=== PATIENT | female | born 1960 | race Caucasian/White ===

== ENCOUNTER → 2017-09-20 | Outpatient (CLI) | payer OTHER ==
[~2017-09-20] MED LIST: ACET325 PO; ALBU90OI INH; ALBU90OI61 INH; ASPI81CH PO; Aspir 8181 MG PO; BUSP15 PO; CYCL10 PO; DILT120 PO; DULO60 PO; Flovent 220 Ora12 GM INH; HYDACE5 PO; IBUP800 PO; METO25ER PO; NICO21TP TD; NICO7 TD; PRED20 PO; PREG75 PO; Percocet 5-3251 EACH PO; STIOLTO RESPIMAT4 GM INH; TIOT18
[2017-09-20 17:32] LABS: BASOPHILS ABSOLUTE AUTO 0.08 K/mm3 (0.00-0.23); BASOPHILS PERCENT AUTO 1 % (0-2); EOSINOPHILS PERCENT AUTO 2 % (0-6); Hematocrit 45.7 % (33.0-51.0); Hemoglobin 15.1 g/dL (11.5-16.0); IMMATURE GRAN ABSOLUTE AUTO 0.04 K/mm3 (0.00-0.10); IMMATURE GRAN PERCENT AUTO 0 % (0-1); LYMPHOCYTES ABSOLUTE AUTO 4.21 K/mm3 (0.84-5.20); LYMPHOCYTES PERCENT AUTO 33 % (21-46); MONOCYTES ABSOLUTE AUTO 0.61 K/mm3 (0.16-1.47); MONOCYTES PERCENT AUTO 5 % (4-13); Mean Corpuscular HGB 29.3 pg (26.0-34.0); Mean Corpuscular Volume 89 fL (80-100); Mean Platelet Volume 9.8 fL (9.1-12.4); NEUTROPHILS ABSOLUTE AUTO 7.49 K/mm3 (1.96-9.15); NEUTROPHILS PERCENT AUTO 59 % (41-73); Platelet Count 391 K/mm3 (150-400); RDW Coefficient Variation 13.7 % (11.7-14.2); RDW Standard Deviation 44.9 fL (35.1-46.3); Red Blood Cell Count 5.15 M/mm3 (3.80-5.20); White Blood Cell Count 12.73 K/mm3 (4.00-11.30)
[2017-09-20 17:45] LABS: Alanine Aminotransfer (ALT/SGP 39 U/L (12-78); Albumin, Blood 4.1 g/dL (3.4-5.0); Alk Phos 116 U/L (50-136); Anion Gap 7 mmol/L (6-16); Aspartate Aminotrans (AST/SGOT 19 U/L (12-37); Bilirubin, Total 0.3 mg/dL (0.1-1.0); Blood Urea Nitrogen 12 mg/dL (8-24); Bun/Creatinine Ratio 15.4 (12.0-20.0); CO2, Blood 27 mmol/L (21-32); Calcium, Blood 9.7 mg/dL (8.5-10.1); Chloride, Blood 105 mmol/L (98-108); Cholesterol 202 mg/dL (50-200); Creatinine, Blood 0.78 mg/dL (0.40-1.00); Glomerular Filtration Rate >60 (60-); Glucose, Blood 100 mg/dL (70-99); HDL Cholesterol 51 mg/dL (>39); LDL/HDL RATIO 2.6; Low Density Lipoprotein Chol 132 mg/dL (0-110); Potassium, Blood 4.3 mmol/L (3.5-5.5); Sodium, Blood 139 mmol/L (136-145); Total Protein, Blood 8.1 g/dL (6.4-8.2); Triglycerides 97 mg/dL (30-160); Very Low Density Lipoprot Chol 19 mg/dL (6-32)
== END | disposition home or self-care (01) ==
LOC: LAB 17:21 → LAB SHORT 17:21
PROVIDERS: Student in an Organized Health Care Education/Training Program
DX: R03.0 Elevated blood-pressure reading, without diagnosis of hypertension (principal); R73.09 Other abnormal glucose
CPT/HCPCS: 80053; 80061; 83036; 84443; 85025

== ENCOUNTER 2020-06-17 10:50 | Day surgery (SDC) | payer MEDICARE ==
[~2020-06-17] VITALS: Ht 165.1 cm; Wt 87.8 kg
[2020-06-17] MEDS ORDERED: B-1100 M1 PO (11:34)
[2020-06-17] MEDS ORDERED: FOLI1 PO (11:34)
[2020-06-17] MEDS ORDERED: FAMO20 PO (11:35)
[2020-06-17] MEDS ORDERED: SERT25 PO (11:37)
--- NOTE | 2020-06-17 12:00 | NUR ---
06/17/[address] ORDERED AN EKG THERE IS NO CURRENT EKG ON THE CHART, EKG COMPLETE AND RESULTS PROVIDED TO DR. JANG AND TRANSMITTED TO THE EMR
== END 2020-06-17 13:57 | disposition home or self-care (01) ==
LOC: ORSCSDS 10:50
PROVIDERS: Obstetrics & Gynecology
PROC: 0UT04ZZ Resection of Right Ovary, Percutaneous Endoscopic Approach (ICD-10-PCS; principal; 2020-06-17 12:00)
PROC: 0UT54ZZ Resection of Right Fallopian Tube, Percutaneous Endoscopic Approach (ICD-10-PCS; principal; 2020-06-17 12:00)
DX: D27.0 Benign neoplasm of right ovary (principal); N83.8 Other noninflammatory disorders of ovary, fallopian tube and broad ligament; R19.09 Other intra-abdominal and pelvic swelling, mass and lump; I10 Essential (primary) hypertension; J44.9 Chronic obstructive pulmonary disease, unspecified; F17.210 Nicotine dependence, cigarettes, uncomplicated; K21.9 Gastro-esophageal reflux disease without esophagitis; Z79.899 Other long term (current) drug therapy; Z79.82 Long term (current) use of aspirin
CPT/HCPCS: 88305; 93005; 93010; J0171; J1100; J1885; J2250; J2310; J2405; J2704; J2710; J3010; J7120

== ENCOUNTER → 2021-02-17 | Outpatient (CLI) | payer MEDICARE ==
[~2021-02-17] MED LIST changes: +B-1100 M1 PO; +FAMO20 PO; +FOLI1 PO; +SERT25 PO
[2021-02-17 13:29] LABS: BASOPHILS ABSOLUTE AUTO 0.07 K/mm3 (0.00-0.23); BASOPHILS PERCENT AUTO 1 % (0-2); EOSINOPHILS ABSOLUTE AUTO 0.32 K/mm3 (0.00-0.68); EOSINOPHILS PERCENT AUTO 3 % (0-6); Hematocrit 44.8 % (33.0-51.0); Hemoglobin 14.5 g/dL (11.5-16.0); IMMATURE GRAN ABSOLUTE AUTO 0.05 K/mm3 (0.00-0.10); IMMATURE GRAN PERCENT AUTO 0 % (0-1); LYMPHOCYTES ABSOLUTE AUTO 2.93 K/mm3 (0.84-5.20); LYMPHOCYTES PERCENT AUTO 23 % (21-46); MONOCYTES PERCENT AUTO 4 % (4-13); Mean Corpuscular HGB 28.9 pg (26.0-34.0); Mean Corpuscular HGB Conc 32.4 g/dL (31.5-36.5); Mean Corpuscular Volume 89 fL (80-100); Mean Platelet Volume 9.8 fL (9.1-12.4); NEUTROPHILS ABSOLUTE AUTO 8.95 K/mm3 (1.96-9.15); NEUTROPHILS PERCENT AUTO 70 % (41-73); Platelet Count 433 K/mm3 (150-400); RDW Coefficient Variation 13.1 % (11.7-14.2); RDW Standard Deviation 43.2 fL (35.1-46.3); Red Blood Cell Count 5.01 M/mm3 (3.80-5.20); White Blood Cell Count 12.82 K/mm3 (4.00-11.30)
[2021-02-17 13:45] LABS: LDL/HDL RATIO 3.1; Very Low Density Lipoprot Chol 24 mg/dL (6-32)
[2021-02-17 13:46] LABS: Alanine Aminotransfer (ALT/SGP 27 U/L (12-78); Albumin, Blood 3.6 g/dL (3.4-5.0); Albumin/Globulin Ratio 0.9 (0.8-1.8); Alk Phos 118 U/L (50-136); Anion Gap 3 mmol/L (6-16); Aspartate Aminotrans (AST/SGOT 17 U/L (12-37); Bilirubin, Total 0.5 mg/dL (0.1-1.0); Blood Urea Nitrogen 11 mg/dL (8-24); Bun/Creatinine Ratio 16.5 (12.0-20.0); CHOL/HDL RATIO 4.6; CO2, Blood 29 mmol/L (21-32); Calcium, Blood 9.5 mg/dL (8.5-10.1); Chloride, Blood 105 mmol/L (98-108); Cholesterol 243 mg/dL (50-200); Creatinine, Blood 0.67 mg/dL (0.40-1.00); Glomerular Filtration Rate >60 (60-); Glucose, Blood 99 mg/dL (70-99); HDL Cholesterol 53 mg/dL (>39); Low Density Lipoprotein Chol 166 mg/dL (0-110); Sodium, Blood 137 mmol/L (136-145); Total Protein, Blood 7.6 g/dL (6.4-8.2); Triglycerides 121 mg/dL (30-160)
== END | disposition home or self-care (01) ==
LOC: LAB 11:02 → LAB SHORT 11:02
PROVIDERS: Nurse Practitioner Family
DX: D72.829 Elevated white blood cell count, unspecified (principal); E78.5 Hyperlipidemia, unspecified
CPT/HCPCS: 80053; 80061; 85025

== ENCOUNTER 2021-04-17 10:55 | Inpatient (IN) | payer MEDICARE ==
[~2021-04-17] VITALS: Ht 165.1 cm; Wt 94.8 kg
[2021-04-17 11:14] LABS: Hematocrit 45.5 % (33.0-51.0); Hemoglobin 14.8 g/dL (11.5-16.0); Mean Corpuscular HGB 29.1 pg (26.0-34.0); Mean Corpuscular HGB Conc 32.5 g/dL (31.5-36.5); Mean Corpuscular Volume 89 fL (80-100); Mean Platelet Volume 10.1 fL (9.1-12.4); Platelet Count 361 K/mm3 (150-400); RDW Coefficient Variation 13.2 % (11.7-14.2); RDW Standard Deviation 43.3 fL (35.1-46.3); Red Blood Cell Count 5.09 M/mm3 (3.80-5.20); White Blood Cell Count 22.31 K/mm3 (4.00-11.30)
[2021-04-17] MEDS ORDERED: IBUP600 PO (11:15)
[2021-04-17 11:46] LABS: BAND PERCENT MAN 3 % (0-8); BASOPHILS PERCENT MAN 0 % (0-2); EOSINOPHILS PERCENT MAN 0 % (0-6); LYMPHOCYTES ABSOLUTE MAN 1.11 K/mm3 (0.84-5.20); LYMPHOCYTES PERCENT MAN 5 % (21-46); MONOCYTES ABSOLUTE MAN 0.89 K/mm3 (0.16-1.47); MONOCYTES PERCENT MAN 4 % (4-13); SEG NEUTROPHILS PERCENT MAN 88 % (41-73); TOTAL CELLS COUNTED 100
[2021-04-17 11:53] LABS: Alanine Aminotransfer (ALT/SGP 26 U/L (12-78); Albumin, Blood 3.7 g/dL (3.4-5.0); Albumin/Globulin Ratio 0.9 (0.8-1.8); Alk Phos 103 U/L (50-136); Anion Gap 7 mmol/L (6-16); Aspartate Aminotrans (AST/SGOT 11 U/L (12-37); Bilirubin, Total 0.7 mg/dL (0.1-1.0); Blood Urea Nitrogen 15 mg/dL (8-24); Bun/Creatinine Ratio 23.3 (12.0-20.0); CO2, Blood 26 mmol/L (21-32); Calcium, Blood 9.8 mg/dL (8.5-10.1); Chloride, Blood 105 mmol/L (98-108); Creatinine, Blood 0.64 mg/dL (0.40-1.00); Globulin, Blood 3.9 g/dL (2.2-4.0); Glomerular Filtration Rate >60 (60-); Glucose, Blood 120 mg/dL (70-99); Potassium, Blood 4.1 mmol/L (3.5-5.5); Sodium, Blood 138 mmol/L (136-145); Total Protein, Blood 7.6 g/dL (6.4-8.2)
[2021-04-17 13:24] LABS: Source, Urine Clean Catch
[2021-04-17 13:28] LABS: Bilirubin, Urine Neg (Neg); Blood, Urine 1+ (Neg); Glucose Qualitative, Urine Neg (Neg); Ketones, Urine Neg (Neg); Leukocyte Esterase, Urine 2+ (Neg); Nitrite, Urine Neg (Neg); Protein, Urine 1+ (Neg); Urobilinogen, Urine NORM (Normal)
[2021-04-17 13:33] LABS: Appearance, Urine Clear (Clear); Color, Urine Yellow (P-Yellow)
[2021-04-17 13:36] LABS: Bacteria Rare /hpf; Red Blood Cells, Urine 0-2 /hpf (0-2); Squamous Epithelial Cells Few /hpf (Few)
[2021-04-17 14:22] LABS: Influenza A, PCR NEGATIVE (NEGATIVE); Influenza B, PCR NEGATIVE (NEGATIVE); Resp Syncytial Virus, PCR NEGATIVE (NEGATIVE); SARS-Cov-2 (COVID-19) PCR, MMC NEGATIVE (NEGATIVE)
--- NOTE | 2021-04-17 15:07 | NUR ---
History, Chart, Medications and Allergies reviewed before start of procedure. EXP WHEEZES T/O. NON PRODUCTIVE COUGH NOTED AT THIS TIME. Patient confirms NPO status and agrees with scheduled surgery. Pre-Op teaching done. Pt verbalizes understanding. PT C/O ABD PAIN MIDDLE TO LEFT LQ. C/O PAIN 7/10 AT THIS TIME. REPORTS SOME NAUSEA.
--- NOTE | 2021-04-17 16:29 | NUR ---
04/17/21 1629 Eliza Brasher NO PREOP ANTIBIOTICS ORDERED DUE TO PATIENT BEING ON SCHEDULE ANTIBIOTICS PRIOR TO SURGERY.
[2021-04-17 20:45] LABS: PCO2 Arterial 52.4 mmHg (35-45); PO2 Arterial 89.5 mmHg (80-100)
--- NOTE | 2021-04-17 22:21 | NUR ---
ASSUMED CARE @1855 PATIENT TO ROOM FROM SURGERY @1855 ON VENT. PATIENT INITIALLY NOT RESPONDING D/T SEDATION, STARTED TO WAKE UP AND FOLLOW COMMANDS, PUPILS REACTIVE, NODS YES/NO TO QUESTIONS. ON SEDATION OF PROPOFOL INF 25 MCG/KG/MIN. 02 SATS 97%, VENT AC VC 20/430/5/55%, RT ADJUSTED TO THESE SETTINGS DUE TO ABG RESULTS. LUNG SOUNDS WITH EXPIRATORY WHEEZES. HR SR-ST 90s-110. BP STABLE. NG TO LOW INTERMITTEN SUCTION, DRAINING METHYLENE BLUE THAT WAS USED DURING SURGERY. NEFTALI DRAINS DRAINING SANGUINUS TO SARASANGUINOUS FLUID, ABDOMINAL DRESSING INTACT WITH A SMALL AMOUNT OF BLOOD WEEPING THROUGH. CASON DRAINING YELLOW URIN. MEDICATED FOR PAIN PER EMAR. REPOSITIONING Q2 HOURS, ORAL CARE DONE. PATIENTS DAUGHTER TO ROOM WHEN PATIENT ARRIVED. SEE SHIFT ASSESSMENT FOR MORE DETAIL.
[2021-04-18 03:37] LABS: Hematocrit 40.8 % (33.0-51.0); Hemoglobin 13.2 g/dL (11.5-16.0); Mean Corpuscular HGB 28.8 pg (26.0-34.0); Mean Corpuscular HGB Conc 32.4 g/dL (31.5-36.5); Mean Corpuscular Volume 89 fL (80-100); Platelet Count 318 K/mm3 (150-400); RDW Coefficient Variation 13.6 % (11.7-14.2); RDW Standard Deviation 44.7 fL (35.1-46.3); Red Blood Cell Count 4.58 M/mm3 (3.80-5.20); White Blood Cell Count 23.71 K/mm3 (4.00-11.30)
[2021-04-18 03:58] LABS: Alanine Aminotransfer (ALT/SGP 31 U/L (12-78); Albumin, Blood 2.5 g/dL (3.4-5.0); Albumin/Globulin Ratio 0.7 (0.8-1.8); Alk Phos 69 U/L (50-136); Anion Gap 6 mmol/L (6-16); Aspartate Aminotrans (AST/SGOT 18 U/L (12-37); Bilirubin, Total 0.6 mg/dL (0.1-1.0); Blood Urea Nitrogen 10 mg/dL (8-24); Bun/Creatinine Ratio 13.4 (12.0-20.0); CO2, Blood 25 mmol/L (21-32); Calcium, Blood 8.7 mg/dL (8.5-10.1); Chloride, Blood 107 mmol/L (98-108); Creatinine, Blood 0.75 mg/dL (0.40-1.00); Globulin, Blood 3.6 g/dL (2.2-4.0); Glomerular Filtration Rate >60 (60-); Glucose, Blood 171 mg/dL (70-99); Magnesium, Blood 1.8 mg/dL (1.6-2.4); Sodium, Blood 138 mmol/L (136-145); Total Protein, Blood 6.1 g/dL (6.4-8.2)
--- NOTE | 2021-04-18 05:36 | NUR ---
SHIFT SUMMARY PATIENT OPENS EYES SPONTANEOUSLY, NODS YES/NO TO QUESTIONS AND FOLLOWS COMMANDS. ABLE TO MOVE ALL EXTREMETIES. SEDATED WITH PROPOFOL INF 35 MCG/KG/MIN. 02 SATS 95% ON VENT AC VC 20/430/5/50%. THIN WHITE SECRETIONS SUCTIONED, LUNG SOUNDS INSPIRATORY WHEEZE. HR SR-ST @90s-110. BP STABLE. NG TO LIS, SMALL AMOUNT OF BLUE OUTPUT FROM SURGERY. MEDICATED FOR PAIN Q2 HOURS, PER EMAR. REPOSITIONED Q2 HOURS. IN SOFT WRIST RESTRAINTS TO PROTECT LINES AND TUBES. LACTIC ACID OF 4.[address] KAISER, NO ORDERS AT THIS TIME.
[2021-04-18 05:45] LABS: BAND PERCENT MAN 19 % (0-8); BASOPHILS PERCENT MAN 0 % (0-2); EOSINOPHILS PERCENT MAN 0 % (0-6); LYMPHOCYTES ABSOLUTE MAN 0.94 K/mm3 (0.84-5.20); LYMPHOCYTES PERCENT MAN 4 % (21-46); METAMYELOCYTE ABSOLUTE MAN 0.23 K/mm3 (0.00-0.00); METAMYELOCYTE PERCENT MAN 1 % (0-0); MONOCYTES ABSOLUTE MAN 0.71 K/mm3 (0.16-1.47); MONOCYTES PERCENT MAN 3 % (4-13); NEUTROPHILS ABSOLUTE MAN 21.81 K/mm3 (1.96-9.15); SEG NEUTROPHILS PERCENT MAN 73 % (41-73); TOTAL CELLS COUNTED 100
--- NOTE | 2021-04-18 11:15 | NUR ---
PT WAS EXTUBATED PER DR. RAY ORDERS. PT IS AWAKE AND FOLLOWING COMMANDS. NO SIGN OF RESP DISTRESS. CALL LIGHT IN REACH AND PT ABLE TO USE IT APPRPOPRIATELY.
--- NOTE | 2021-04-18 17:06 | NUR ---
SUMMARY PT WAS EXTUBATED THIS AM. SHE IS A/O X4 AND USING CALL LIGHT APPROPRIATELY. PT DID NOT HAVE TO GO BACK TO OR TODAY. NG STILL IN PLACE TO LIS. FENTANYL FILM HISTORIAN STARTED TODAY. NEFTALI DRAINS TO R ABD DRAINING SANGUINOUS FLUID. MIDLINE DESEAN VAC INTACT WITH MINIMAL OOZING ON THE DRESSING. NO SIGN OF DISTRESS, NO REQUESTS.
--- NOTE | 2021-04-18 19:45 | NUR ---
ASSUMING PT CARE: PT RESTING IN SEMI-FOWLERS IN BED, WATCHING TV. APPROPRIATELY INTERACTIVE, FOLLOWING DIRECTIONS. FENTANYL @ 50mcg/hr. SPO2 96% ON 2L/MIN NC. HR SINUS TACH, low 100s. ABD DISTENDED, FIRM, TENDER. NEFTALI DRAIN x2 TO R ABD, SCANT SEROSANGUINOUS CONTENTS. DESEAN DRESSING TO ABD MIDLINE. SEE INITIAL SHIFT DOCUMENTATION FOR FULL ASSESSMENT.
--- NOTE | 2021-04-19 | NUR ---
PT RESTING SOUNDLY. AWAKES WHEN STAFF ENTERS ROOM, RESPONDS APPROPRIATELY. VS STABLE. DENIES ANY UNMET NEEDS.
[2021-04-19 03:27] LABS: BASOPHILS ABSOLUTE AUTO 0.04 K/mm3 (0.00-0.23); BASOPHILS PERCENT AUTO 0 % (0-2); EOSINOPHILS ABSOLUTE AUTO 0.09 K/mm3 (0.00-0.68); EOSINOPHILS PERCENT AUTO 1 % (0-6); Hematocrit 35.5 % (33.0-51.0); Hemoglobin 11.5 g/dL (11.5-16.0); IMMATURE GRAN ABSOLUTE AUTO 0.05 K/mm3 (0.00-0.10); IMMATURE GRAN PERCENT AUTO 0 % (0-1); LYMPHOCYTES ABSOLUTE AUTO 2.59 K/mm3 (0.84-5.20); LYMPHOCYTES PERCENT AUTO 15 % (21-46); MONOCYTES ABSOLUTE AUTO 0.51 K/mm3 (0.16-1.47); MONOCYTES PERCENT AUTO 3 % (4-13); Mean Corpuscular HGB Conc 32.4 g/dL (31.5-36.5); Mean Corpuscular Volume 89 fL (80-100); Mean Platelet Volume 9.9 fL (9.1-12.4); NEUTROPHILS ABSOLUTE AUTO 13.74 K/mm3 (1.96-9.15); NEUTROPHILS PERCENT AUTO 81 % (41-73); Platelet Count 294 K/mm3 (150-400); RDW Standard Deviation 46.1 fL (35.1-46.3); Red Blood Cell Count 3.97 M/mm3 (3.80-5.20); White Blood Cell Count 17.02 K/mm3 (4.00-11.30)
[2021-04-19 03:44] LABS: Alanine Aminotransfer (ALT/SGP 24 U/L (12-78); Albumin, Blood 2.4 g/dL (3.4-5.0); Albumin/Globulin Ratio 0.7 (0.8-1.8); Alk Phos 68 U/L (50-136); Anion Gap 4 mmol/L (6-16); Aspartate Aminotrans (AST/SGOT 19 U/L (12-37); Bilirubin, Direct 0.2 mg/dL (0.0-0.3); Bilirubin, Indirect 0.2 mg/dL (0.1-0.7); Bilirubin, Total 0.4 mg/dL (0.1-1.0); Blood Urea Nitrogen 11 mg/dL (8-24); Bun/Creatinine Ratio 17.9 (12.0-20.0); CO2, Blood 30 mmol/L (21-32); Chloride, Blood 106 mmol/L (98-108); Creatinine, Blood 0.62 mg/dL (0.40-1.00); Globulin, Blood 3.6 g/dL (2.2-4.0); Glomerular Filtration Rate >60 (60-); Glucose, Blood 100 mg/dL (70-99); Phosphorus, Blood 2.2 mg/dL (2.5-4.9); Potassium, Blood 3.7 mmol/L (3.5-5.5); Sodium, Blood 140 mmol/L (136-145)
--- NOTE | 2021-04-19 06:37 | NUR ---
SHIFT SUMMARY: PT CONTINUES TO REST SUPINE IN BED. PT ADAMANT T/O THE NIGHT TO NOT CHANGE POSITIONS D/T PAIN & BEING "COMFORTABLE". PT RECEIVED ONE PRN DOSE OF FENTANYL BUT PAIN WAS OTHERWISE CONTROLLED W/ BUNDLE CLERK. SURGICAL DRESSINGS INTACT, W/ SM AMNT OF DRIED BLOOD TO THE MIDLINE DRESSING UNCHANGED FROM INITIAL SHIFT ASSESSMENT. 40ml TOTAL SEROSANGUINOUS DRAINAGE FROM NEFTALI DRAINS. NO ACUTE NEG CHANGES OVERNIGHT. WILL CONTINUE TO MONITOR UNTIL REPORT OFF TO ONCOMING RN.
--- NOTE | 2021-04-19 12:30 | NUR ---
PT A/O X4. ON FENTANYL DISTRIBUTION WAREHOUSE MANAGER. HAS NOT NEEDED ANY EXTRA DOSES TODAY. NO NAUSEA. NEFTALI DRAINS PUT OUT SM AMT OF SANGUINOUS FLUID. DESEAN VAC MIDLINE INTACT. NG TO LIS. PT WAS MADE SURGICAL STATUS BY DR. MINAYA. REPORT GIVEN TO RICH VALADEZ WHO WILL ASSUME CARE. NO SIGN OF DISTRESS PT LEAVES ICU.
--- NOTE | 2021-04-19 13:06 | NUR ---
PT. ARRIVE TO ROOM #227 VIA BED. PT. DID SIT UP AND STAND TO TRANSFER TO BED AND TOLERATE WELL BUT MOVED VERY STIFF AND SLOWLY. PILLOW GIVEN FOR SPLINTING PT. HAS A COUGH. DEMURRAGE CLERK INFUSING PER ORDER ALONG WITH IVF. NG PLACED TO LOW INTERMITTENT SUCTION AND SMALL AMOUNT BROWN FLUID OUT. NEFTALI X 2 INTACT AND BOTH WITH SMALL AMOUNT SEROUSANG. CASON PATENT TO GRAVITY DRAINING CLR MARIANNA URINE. PICCO DRSG. ON ABDOMEN WITH SMALL AMOUNT OLD DRAINAGE, SEROUSANG. CALL LIGHT PLACED IN REACH AND INSTRUCTED PT. TO USE FOR ANY CONCERNS, COMPLAINTS OR NEEDS.
--- NOTE | 2021-04-19 14:53 | NUR ---
CASON REMOVED AT THIS TIME, TOLERATE WELL. EXPLAINED TO PT. TO CALL FOR NURSE TO ASSIST TO BSC/BATHROOM FOR ASSIST. PATIENT VERBALIZE UNDERSTANDING.
--- NOTE | 2021-04-19 17:27 | NUR ---
PT. UP WITH ONE PERSON SBA TO BSC, WEAK AND NEEDING HELP WITH WIRES/TUBES. DID VOID 200CC CLEAR YELLOW . BACK TO BED WITH ASSIST AND PT. INSTRUCTED ON INCENTIVE SPIROMETER USE, AND USING PILLOW FOR SPLINT ON ABD. WHEN COUGHT. VERBALIZE UNDERSTANDING. CALL LIGHT IN REACH.
--- NOTE | 2021-04-20 04:21 | NUR ---
SHIFT SUMMARY PT HAS SLEPT ON AND OFF T/O THE SHIFT. PT LOST TWO IV'S THIS SHIFT. POWERGLIDE PLACED TO LIDNY. IV ANTIBIOTICS AND CLINIMIX PER ORDERS. NG REMAINS IN PLACE TO LOW INTERMITTENT SUCTION. BROWN REDDISH OUTPUT WITH VERY MINIMAL OUT THIS SHIFT. NEFTALI DRAINS INTACT WITH SEROSANGUINOUS DRAINAGE. DESEAN IN PLACE. PT STRENGTH IS RETURNING AND SHE IS ABLE TO AMBULATE TO THE BSC INDEPENDENTLY. PT REQUIRED ONE ADDTIONAL DOSE OF FENTANYL FOR PAIN, BUT OVERALL PAIN SEEMS WELL MANAGED WITH HOSPITAL NURSE LIAISON. NPO. NO N/V, NO BM THIS SHIFT. BED IN LOWEST POSITION, CALL LIGHT WITHIN REACH.
[2021-04-20 05:55] LABS: BASOPHILS ABSOLUTE AUTO 0.06 K/mm3 (0.00-0.23); BASOPHILS PERCENT AUTO 0 % (0-2); EOSINOPHILS ABSOLUTE AUTO 0.47 K/mm3 (0.00-0.68); EOSINOPHILS PERCENT AUTO 4 % (0-6); Hematocrit 35.9 % (33.0-51.0); Hemoglobin 11.7 g/dL (11.5-16.0); IMMATURE GRAN ABSOLUTE AUTO 0.06 K/mm3 (0.00-0.10); IMMATURE GRAN PERCENT AUTO 0 % (0-1); LYMPHOCYTES ABSOLUTE AUTO 2.43 K/mm3 (0.84-5.20); LYMPHOCYTES PERCENT AUTO 18 % (21-46); MONOCYTES ABSOLUTE AUTO 0.55 K/mm3 (0.16-1.47); MONOCYTES PERCENT AUTO 4 % (4-13); Mean Corpuscular HGB 29.1 pg (26.0-34.0); Mean Corpuscular HGB Conc 32.6 g/dL (31.5-36.5); Mean Corpuscular Volume 89 fL (80-100); Mean Platelet Volume 10.1 fL (9.1-12.4); NEUTROPHILS ABSOLUTE AUTO 9.95 K/mm3 (1.96-9.15); NEUTROPHILS PERCENT AUTO 74 % (41-73); Platelet Count 315 K/mm3 (150-400); RDW Coefficient Variation 13.8 % (11.7-14.2); RDW Standard Deviation 45.2 fL (35.1-46.3); Red Blood Cell Count 4.02 M/mm3 (3.80-5.20); White Blood Cell Count 13.52 K/mm3 (4.00-11.30)
--- NOTE | 2021-04-20 06:25 | NUR ---
DR. MINAYA IN ROOM TO ROUND ON PT THIS AM. PT HAD MINIMAL OUTPUT FROM NG OVERNIGHT. DR. MINAYA REMOVED NG TUBE THIS AM, AND ADVANCED PT TO CLEAR LIQUID DIET. HE STATES DC WITHIN THE NEXT COUPLE OF DAYS IF PT CONTINUES TO IMPROVE.
[2021-04-20 06:33] LABS: Albumin, Blood 2.3 g/dL (3.4-5.0); Anion Gap 8 mmol/L (6-16); Blood Urea Nitrogen 12 mg/dL (8-24); CO2, Blood 29 mmol/L (21-32); Calcium, Blood 9.1 mg/dL (8.5-10.1); Chloride, Blood 103 mmol/L (98-108); Creatinine, Blood 0.52 mg/dL (0.40-1.00); Glomerular Filtration Rate >60 (60-); Glucose, Blood 104 mg/dL (70-99); Potassium, Blood 4.4 mmol/L (3.5-5.5); Sodium, Blood 140 mmol/L (136-145)
--- NOTE | 2021-04-20 17:07 | NUR ---
SHIFT SUMMARY PT HAS DONE WELL TODAY. UP TO BSC SEVERAL TIMES & UP TO CHAIR. TOLERATING CLEAR LQ's WELL BUT HESITANT TO FINISH TRAYS. STATES SHE IS UNSURE IF SHE FEELS NAUSEATED, BUT DECLINES ANTIEMETICS. DENIES PASSING GAS BUT REPORTS FEELING AN INCREASE IN STOMACH NOISES. NEFTALI #2 HAS > 100ML OUTPUT. CLINIMIX DECREASED PER DIETARY'S RECOMMENDATION & MD ORDER.
--- NOTE | 2021-04-21 05:58 | NUR ---
Pt is alert, awake and oriented. She is in bed and is resting in stable condition. Post op day 4, incision site to abdomen inspected, covered with an intact clean and dry dressing. Pt is able to transfer to bedside commode independently, she is assisted with her care, medicated as indicated. Her call light was placed near her and was encouraged to call for help when assistance is needed as she is monitored.
[2021-04-21 06:15] LABS: BASOPHILS ABSOLUTE AUTO 0.04 K/mm3 (0.00-0.23); BASOPHILS PERCENT AUTO 0 % (0-2); EOSINOPHILS ABSOLUTE AUTO 0.41 K/mm3 (0.00-0.68); EOSINOPHILS PERCENT AUTO 3 % (0-6); Hematocrit 39.4 % (33.0-51.0); Hemoglobin 12.6 g/dL (11.5-16.0); IMMATURE GRAN ABSOLUTE AUTO 0.08 K/mm3 (0.00-0.10); IMMATURE GRAN PERCENT AUTO 1 % (0-1); LYMPHOCYTES ABSOLUTE AUTO 1.96 K/mm3 (0.84-5.20); LYMPHOCYTES PERCENT AUTO 16 % (21-46); MONOCYTES ABSOLUTE AUTO 0.71 K/mm3 (0.16-1.47); MONOCYTES PERCENT AUTO 6 % (4-13); Mean Corpuscular HGB 28.5 pg (26.0-34.0); Mean Corpuscular Volume 89 fL (80-100); Mean Platelet Volume 9.5 fL (9.1-12.4); NEUTROPHILS ABSOLUTE AUTO 8.82 K/mm3 (1.96-9.15); NEUTROPHILS PERCENT AUTO 73 % (41-73); Platelet Count 352 K/mm3 (150-400); RDW Coefficient Variation 13.3 % (11.7-14.2); RDW Standard Deviation 43.6 fL (35.1-46.3); Red Blood Cell Count 4.42 M/mm3 (3.80-5.20); White Blood Cell Count 12.02 K/mm3 (4.00-11.30)
[2021-04-21 06:42] LABS: Albumin, Blood 2.5 g/dL (3.4-5.0); Anion Gap 8 mmol/L (6-16); Blood Urea Nitrogen 12 mg/dL (8-24); Bun/Creatinine Ratio 22.8 (12.0-20.0); CO2, Blood 28 mmol/L (21-32); Calcium, Blood 9.6 mg/dL (8.5-10.1); Chloride, Blood 104 mmol/L (98-108); Creatinine, Blood 0.53 mg/dL (0.40-1.00); Glomerular Filtration Rate >60 (60-); Glucose, Blood 127 mg/dL (70-99); Phosphorus, Blood 4.2 mg/dL (2.5-4.9); Potassium, Blood 3.3 mmol/L (3.5-5.5); Sodium, Blood 140 mmol/L (136-145)
--- NOTE | 2021-04-21 07:13 | NUR ---
O2 ATTEMPT TO WEAN TO 2L. 88%. INCREASED BACK TO 3L. ENCOURAGED TCDB & IS.
--- NOTE | 2021-04-21 13:59 | NUR ---
88% ON RA. 2L NC APPLIED. RECOVERED.
--- NOTE | 2021-04-21 20:00 | NUR ---
SHIFT SUMMARY PT HAS CONTINUED TO PASS GAS & TOLERATE CLEAR LQ's. AMBULATED IN HALLWAY x 1 & UP TO CHAIR. UP TO BSC SEVERAL TIMES. WEANED MARKETING PERFORMANCE ANALYST & TRANSITIONED TO PO PERCOCET.
--- NOTE | 2021-04-22 06:58 | NUR ---
Pt is bed at this time where she remains much of the night and is resting comfortably. AAOx4, condition is stable. Has reported abd pain and was medicated as indicated with positive result. She is assisted with care and ADLs, assisted with bathroom and transfer needs. Her call mejia was placed near her and was reminded to call for help when assistance is needed as she is monitored.
[2021-04-23 05:17] LABS: BASOPHILS ABSOLUTE AUTO 0.04 K/mm3 (0.00-0.23); BASOPHILS PERCENT AUTO 0 % (0-2); EOSINOPHILS ABSOLUTE AUTO 0.43 K/mm3 (0.00-0.68); EOSINOPHILS PERCENT AUTO 4 % (0-6); Hematocrit 36.6 % (33.0-51.0); Hemoglobin 11.8 g/dL (11.5-16.0); IMMATURE GRAN ABSOLUTE AUTO 0.09 K/mm3 (0.00-0.10); IMMATURE GRAN PERCENT AUTO 1 % (0-1); LYMPHOCYTES PERCENT AUTO 17 % (21-46); MONOCYTES ABSOLUTE AUTO 0.89 K/mm3 (0.16-1.47); MONOCYTES PERCENT AUTO 7 % (4-13); Mean Corpuscular HGB 28.7 pg (26.0-34.0); Mean Corpuscular HGB Conc 32.2 g/dL (31.5-36.5); Mean Corpuscular Volume 89 fL (80-100); Mean Platelet Volume 9.7 fL (9.1-12.4); NEUTROPHILS PERCENT AUTO 71 % (41-73); Platelet Count 388 K/mm3 (150-400); RDW Coefficient Variation 13.5 % (11.7-14.2); RDW Standard Deviation 44.2 fL (35.1-46.3); Red Blood Cell Count 4.11 M/mm3 (3.80-5.20); White Blood Cell Count 12.05 K/mm3 (4.00-11.30)
--- NOTE | 2021-04-23 06:52 | NUR ---
PT IS IN BED AND IS RESTING IN STABLE CONDITION, MEDICATED FOR PAIN PRN WITH POSITIVE EFFECT. ASSISTED WITH CARE AND ADLS, ASSISTED WITH BATHROOM AND TOILETING NEEDS. CALL [place] GIVEN AND ENCOURAGED TO CALL FOR HELP WHEN ASSISTANCE IS NEEDED.
--- NOTE | 2021-04-23 12:17 | NUR ---
suppository given this a.m. with Miralax, pt. reports small stool, noted small amount formed brown stool.
--- NOTE | 2021-04-23 14:30 | NUR ---
Dr. Alvarez in to see pt. , picco removed and new drsg. applied. kip intact, incision well approximated, no drainage. NEFTALI drains removed, pt. tolerate well. pt. discharged and dc instructions explained and copy sent with pt.- son here to take pt. home. Personal belongings sent with pt.-w/c to exit.
== END 2021-04-23 14:33 | disposition home or self-care (01) | DRG 356 ==
LOC: ER 10:55 → ICUW 13:27 → ICUE 13:27 → SURS 04-19 12:49
PROVIDERS: Emergency Medicine; Internal Medicine Critical Care Medicine; Nurse Practitioner Acute Care; ADMIT Surgery
PROC: 0DJ00ZZ Inspection of Upper Intestinal Tract, Open Approach (ICD-10-PCS; principal; 2021-04-17 15:00)
DX: K65.0 Generalized (acute) peritonitis (principal); J96.00 Acute respiratory failure, unspecified whether with hypoxia or hypercapnia; J44.1 Chronic obstructive pulmonary disease with (acute) exacerbation; I47.1 Supraventricular tachycardia; F17.210 Nicotine dependence, cigarettes, uncomplicated; E87.6 Hypokalemia; F41.9 Anxiety disorder, unspecified; I10 Essential (primary) hypertension; Z20.822 Contact with and (suspected) exposure to COVID-19; Z98.51 Tubal ligation status; Z90.49 Acquired absence of other specified parts of digestive tract; Z90.721 Acquired absence of ovaries, unilateral; Z79.899 Other long term (current) drug therapy
CPT/HCPCS: 0241U; 36415; 36600; 71045; 74177; 80053; 80069; 81001; 82248; 82803; 83605; 83690; 83735; 84100; 84132; 84484; 85025; 87040; 87086; 93005; 93010; 94002; 94003; 94640; 94760; 96374; 96375; 97165; 97535; 99285-25; A9270; C1751; C9113; J0330; J1100; J1170; J1650; J2250; J2405; J2543; J2704; J2765; J3010; J7030; J7050; J7120; Q9967; Q9968

== ENCOUNTER → 2022-07-26 | Outpatient (CLI) | payer MEDICARE ==
[~2022-07-26] MED LIST changes: +IBUP600 PO
[2022-07-26 18:22] LABS: BASOPHILS ABSOLUTE AUTO 0.07 K/mm3 (0.00-0.23); BASOPHILS PERCENT AUTO 1 % (0-2); EOSINOPHILS ABSOLUTE AUTO 0.27 K/mm3 (0.00-0.68); EOSINOPHILS PERCENT AUTO 2 % (0-6); Hematocrit 44.9 % (33.0-51.0); Hemoglobin 14.3 g/dL (11.5-16.0); IMMATURE GRAN ABSOLUTE AUTO 0.04 K/mm3 (0.00-0.10); IMMATURE GRAN PERCENT AUTO 0 % (0-1); LYMPHOCYTES ABSOLUTE AUTO 3.94 K/mm3 (0.84-5.20); LYMPHOCYTES PERCENT AUTO 33 % (21-46); MONOCYTES ABSOLUTE AUTO 0.56 K/mm3 (0.16-1.47); MONOCYTES PERCENT AUTO 5 % (4-13); Mean Corpuscular HGB 28.5 pg (26.0-34.0); Mean Corpuscular HGB Conc 31.8 g/dL (31.5-36.5); Mean Corpuscular Volume 89 fL (80-100); NEUTROPHILS ABSOLUTE AUTO 6.94 K/mm3 (1.96-9.15); NEUTROPHILS PERCENT AUTO 59 % (41-73); Platelet Count 483 K/mm3 (150-400); RDW Standard Deviation 46.5 fL (35.1-46.3); Red Blood Cell Count 5.02 M/mm3 (3.80-5.20); White Blood Cell Count 11.82 K/mm3 (4.00-11.30)
[2022-07-27 04:41] LABS: Albumin, Blood 3.8 g/dL (3.4-5.0); Bilirubin, Total 0.2 mg/dL (0.1-1.0); Bun/Creatinine Ratio 19.1 (12.0-20.0); Calcium, Blood 9.2 mg/dL (8.5-10.1); Creatinine, Blood 0.68 mg/dL (0.40-1.00); Globulin, Blood 3.9 g/dL (2.2-4.0); Potassium, Blood 4.3 mmol/L (3.5-5.5); Total Protein, Blood 7.7 g/dL (6.4-8.2)
[2022-07-27 08:59] LABS: Thyroid Stimulating Hormone 1.07 uIU/mL (0.360-4.800)
== END | disposition home or self-care (01) ==
LOC: LAB 17:19 → LAB SHORT 17:19
PROVIDERS: Nurse Practitioner Family
DX: Z13.1 Encounter for screening for diabetes mellitus (principal); Z13.29 Encounter for screening for other suspected endocrine disorder; D75.839 Thrombocytosis, unspecified; R73.01 Impaired fasting glucose; R53.83 Other fatigue
CPT/HCPCS: 80053; 83036; 84443; 85025

== ENCOUNTER 2023-11-11 19:21 | Inpatient (IN) | payer MEDICARE ==
[~2023-11-11] VITALS: Ht 165.1 cm; Wt 94.1 kg
[2023-11-11 20:17] LABS: BASOPHILS ABSOLUTE AUTO 0.08 K/mm3 (0.00-0.23); BASOPHILS PERCENT AUTO 0 % (0-2); EOSINOPHILS ABSOLUTE AUTO 0.08 K/mm3 (0.00-0.68); EOSINOPHILS PERCENT AUTO 0 % (0-6); Hematocrit 41.6 % (33.0-51.0); Hemoglobin 13.6 g/dL (11.5-16.0); IMMATURE GRAN ABSOLUTE AUTO 0.15 K/mm3 (0.00-0.10); IMMATURE GRAN PERCENT AUTO 1 % (0-1); LYMPHOCYTES ABSOLUTE AUTO 1.91 K/mm3 (0.84-5.20); LYMPHOCYTES PERCENT AUTO 7 % (21-46); MONOCYTES ABSOLUTE AUTO 0.68 K/mm3 (0.16-1.47); MONOCYTES PERCENT AUTO 3 % (4-13); Mean Corpuscular HGB 28.5 pg (26.0-34.0); Mean Corpuscular HGB Conc 32.7 g/dL (31.5-36.5); Mean Corpuscular Volume 87 fL (80-100); Mean Platelet Volume 9.2 fL (9.1-12.4); NEUTROPHILS ABSOLUTE AUTO 22.99 K/mm3 (1.96-9.15); NEUTROPHILS PERCENT AUTO 89 % (41-73); Platelet Count 399 K/mm3 (150-400); RDW Coefficient Variation 14.9 % (11.7-14.2); RDW Standard Deviation 47.8 fL (35.1-46.3); Red Blood Cell Count 4.78 M/mm3 (3.80-5.20); White Blood Cell Count 25.89 K/mm3 (4.00-11.30)
[2023-11-11 20:37] LABS: Albumin, Blood 3.3 g/dL (3.4-5.0); Albumin/Globulin Ratio 0.8 (0.8-1.8); Bilirubin, Total 0.7 mg/dL (0.1-1.0); Bun/Creatinine Ratio 23.7 (12.0-20.0); Calcium, Blood 9.5 mg/dL (8.5-10.1); Creatinine, Blood 0.59 mg/dL (0.40-1.00); Globulin, Blood 4.3 g/dL (2.2-4.0); Potassium, Blood 3.6 mmol/L (3.5-5.5); Total Protein, Blood 7.6 g/dL (6.4-8.2)
[2023-11-11] MEDS ORDERED: NS 1,000 ML IV SCH (22:15)
[2023-11-11] MEDS ORDERED: HYDROmorphone HCl/Pf 1MG SYR IV ONE (22:15)
[2023-11-11] MEDS ORDERED: Piperacillin/Tazobactam Sod 3.375 GM in NS 100 ML IV ONE (22:20)
[2023-11-11] MEDS ORDERED: Albuterol 2.5 MG/3 ML VIAL INH SCH (23:25)
[2023-11-11] MEDS ORDERED: HYDROmorphone HCl/Pf 1MG SYR IV PRN (23:40)
[2023-11-11] MEDS ORDERED: Acetaminophen 325 MG TABLET PO PRN (23:40)
[2023-11-11] MEDS ORDERED: Acetaminophen 650 MG Supp PR PRN (23:40)
[2023-11-11] MEDS ORDERED: HYDROcodone 10-APAP 325 TAB PO PRN (23:45)
[2023-11-11] MEDS ORDERED: Ondansetron HCl 2 MG / ML 2ML Vial IV PRN (23:45)
[2023-11-11] MEDS ORDERED: Naloxone HCl 0.4MG / ML 1ML Vial IV PRN (23:45)
[2023-11-11] MEDS ORDERED: Lactated Ringer's 1,000 ML IV SCH (23:59)
[2023-11-12] VITALS (59 sets, daily range): BP systolic 86–168; BP diastolic 46–105
[2023-11-12 03:43] LABS: BASOPHILS ABSOLUTE AUTO 0.06 K/mm3 (0.00-0.23); BASOPHILS PERCENT AUTO 0 % (0-2); EOSINOPHILS ABSOLUTE AUTO 0.08 K/mm3 (0.00-0.68); EOSINOPHILS PERCENT AUTO 0 % (0-6); Hematocrit 36.2 % (33.0-51.0); Hemoglobin 11.8 g/dL (11.5-16.0); IMMATURE GRAN ABSOLUTE AUTO 0.12 K/mm3 (0.00-0.10); IMMATURE GRAN PERCENT AUTO 1 % (0-1); LYMPHOCYTES ABSOLUTE AUTO 2.33 K/mm3 (0.84-5.20); LYMPHOCYTES PERCENT AUTO 10 % (21-46); MONOCYTES ABSOLUTE AUTO 0.76 K/mm3 (0.16-1.47); MONOCYTES PERCENT AUTO 3 % (4-13); Mean Corpuscular HGB 28.8 pg (26.0-34.0); Mean Corpuscular HGB Conc 32.6 g/dL (31.5-36.5); Mean Corpuscular Volume 88 fL (80-100); Mean Platelet Volume 9.1 fL (9.1-12.4); NEUTROPHILS ABSOLUTE AUTO 20.37 K/mm3 (1.96-9.15); NEUTROPHILS PERCENT AUTO 86 % (41-73); Platelet Count 322 K/mm3 (150-400); White Blood Cell Count 23.72 K/mm3 (4.00-11.30)
[2023-11-12 04:01] LABS: Albumin/Globulin Ratio 0.8 (0.8-1.8); Bilirubin, Total 0.5 mg/dL (0.1-1.0); Bun/Creatinine Ratio 20.4 (12.0-20.0); Calcium, Blood 8.3 mg/dL (8.5-10.1); Creatinine, Blood 0.59 mg/dL (0.40-1.00); Globulin, Blood 3.8 g/dL (2.2-4.0); Magnesium, Blood 1.6 mg/dL (1.6-2.4); Potassium, Blood 3.6 mmol/L (3.5-5.5); Total Protein, Blood 6.8 g/dL (6.4-8.2)
[2023-11-12] MEDS ORDERED: Albuterol 2.5 MG/3 ML VIAL INH PRN ×2 (04:55→13:45)
[2023-11-12] MEDS ORDERED: NS 250 ML IV PRN (05:50)
--- NOTE | 2023-11-12 05:50 | NUR ---
SHIFT SUMMARY PATIENT TO ICU 11 FROM ER AT APPROX 0050. PATIENT IS ALERT AND ORIENTED X4. STATES 7/10 PAIN IN ABD, MOSTLY LUQ. MEDICATED PER EMAR FOR PAIN. SP02 93% ON 4L NC, SOB WITH ACTIVITY. HR ST 100-115 WITH PVCs, BP STABLE, DENIES CP/PRESSURE. UP TO TOILET TO VOID. INDEPENDENT WITH REPOSITIONING. CALL LIGHT IN REACH
[2023-11-12] MEDS ORDERED: Piperacillin/Tazobactam Sod 3.375 GM in NS 100 ML IV SCH (06:00)
[2023-11-12] MEDS ORDERED: HYDROmorphone HCl/Pf 1MG SYR ONE (08:20)
[2023-11-12] MEDS ORDERED: FentaNYL Citrate 50 MCG/ML 2 ML Injection ONE (08:21)
[2023-11-12] MEDS ORDERED: propofoL 40 ML IV ONE (08:21)
[2023-11-12] MEDS ORDERED: Rocuronium Bromide 10 MG/ML 5ML Injection IV ONE ×2 (08:21→11:54)
[2023-11-12] MEDS ORDERED: Phenylephrine HCl 100 MCG/ML-NS 10MLSYR (1MG/10ML) ONE ×2 (08:21→12:27)
[2023-11-12] MEDS ORDERED: Ipratropium/Albuterol SulF 2.5-0.5MG/3 ML Amp ONE (08:21)
[2023-11-12] MEDS ORDERED: EpiNEPhrine 1 MG/1 ML 1ML Vial ONE (08:21)
[2023-11-12] MEDS ORDERED: ePHEDrine Sulfate 50 MG/ML 1ML Injection ONE (08:22)
[2023-11-12] MEDS ORDERED: Sodium Chloride 0.9% Inj 20 ML IV ONE (08:24)
[2023-11-12] MEDS ORDERED: Lidocaine HCl 2% 20 ML MDV ONE (08:29)
--- NOTE | 2023-11-12 08:42 | NUR ---
PT TO OR WITH SURGERY STAFF
[2023-11-12] MEDS ORDERED: Sertraline HCl 50 MG Tab PO SCH (09:00)
[2023-11-12] MEDS ORDERED: Lactobacil 2-S.Thermo-Bifido 1 1 Cap PO SCH (09:00)
[2023-11-12] MEDS ORDERED: Docusate Sodium 100 MG Cap PO SCH (09:00)
[2023-11-12] MEDS ORDERED: dilTIAZem HCL 120 MG CAP.CD PO SCH (09:00)
[2023-11-12] MEDS ORDERED: Fluticasone 0.05% Nasal Spray SCH (09:00)
[2023-11-12] MEDS ORDERED: Bupivacaine 0.5% HCl 5 MG/ML 30MLVIAL ONE (12:30)
[2023-11-12] MEDS ORDERED: Bupivacaine 0.5% Inj 50 ML Vial ONE (12:30)
[2023-11-12] MEDS ORDERED: propofoL 100 ML IV ONE (12:50)
[2023-11-12] MEDS ORDERED: propofoL 100 ML IV SCH (13:00)
--- NOTE | 2023-11-12 13:06 | NUR ---
RETURN FROM OR PT RETURNED TO ICU 5 S/P EX LAP AT 1245. PT RETURNED WITH ETT IN PLACE, BAGGED BY ANESTHESIA. PT PLACED ON VENT BY RT, VENT SETTINGS AC 14, TV 420, PEEP 5, FIO2 45% AT THIS TIME. NO OGT IN PLACE. NEW CASON IN PLACE, WITH DARK YELLOW URINE OUTPUT NOTED. UA TO BE SENT. PT WITH MIDLINE ABD INCISION WITH DESEAN VAC IN PLACE. SBW RESTRAINTS PLACED. DR ZAVALA NOTIFIED OF PT. PLAN TO HOLD SEDATION AT THIS TIME TO ALLOW PT TO WAKE. PT REMAINS SOMNOLENT AND DOES NOT ROUSE TO VERBAL OR NOXIOUS STIMULI AT THIS TIME. VITAL SIGNS STABLE. WILL CONTINUE TO MONITOR.
[2023-11-12] MEDS ORDERED: Ipratropium/Albuterol SulF 2.5-0.5MG/3 ML Amp INH SCH (13:40)
[2023-11-12] MEDS ORDERED: Lactated Ringer's 1,000 ML IV SCH (13:45)
--- NOTE | 2023-11-12 13:59 | NUR ---
PT RETURNED FROM OR INTUBATED. PT OPENING HER EYES AND FOLLOWING COMMANDS, BUT APPEARS ANXIOUS. AFTER REVIEWING PT'S RECORDS DR. ZAVALA DECIDED TO LEAVE PT INTUBATED FOR THE NIGHT. PROPOFOL STARTED AND TITRATED UP TO HELP WITH PT'S ANXIETY. PT REACHING UP TOWARDS ETT DESPITE INSTRUCTIONS NOT TO SO RESTRAINTS INITIATED. LUNGS ARE CLEAR. SR/ST WITH RATE IN THE HIGH 90S/LOW 100S, BP STABLE WITH MAP 77. MIDLINE DESEAN DRESSING WITH SCANT DRESSING ON IT. HYPOACTIVE BOWEL TONES. OG HOOKED TO LIS AFTER DR. ZAVALA VERIFIED PLACEMENT ON XRAY. CASON DRAINING CL YELLOW URINE. DR. MINAYA SPOKE WITH PT'S FAMILY AFTER SURGERY AND PROVIDED UPDATE.
[2023-11-12 14:36] LABS: Source, Urine Foley catheter
[2023-11-12] MEDS ORDERED: Cetylpyridinium Chloride 1 EA MISC MT SCH (14:40)
[2023-11-12 14:42] LABS: Appearance, Urine Clear (Clear); Blood, Urine 3+ (Neg); Color, Urine Yellow (P-Yellow); Glucose Qualitative, Urine Neg (Neg); Ketones, Urine 3+ (Neg); Leukocyte Esterase, Urine Neg (Neg); Nitrite, Urine Neg (Neg); Protein, Urine 2+ (Neg); Specific Gravity, Urine 1.025 (1.003-1.022); Urobilinogen, Urine 2+ (Normal)
[2023-11-12 14:51] LABS: Bilirubin, Urine 1+ (Neg)
[2023-11-12 14:52] LABS: White Blood Cells, Urine 0-2 /hpf (0-5)
[2023-11-12 14:53] LABS: Bacteria Few /hpf; Squamous Epithelial Cells Few /hpf (Few)
[2023-11-12 14:54] LABS: Hyaline Casts 0-2 /lpf (0-2)
[2023-11-12 15:37] LABS: PCO2 Arterial 50.9 mmHg (35-45); PO2 Arterial 61.3 mmHg (80-100); pH Blood Arterial 7.32 (7.35-7.45)
[2023-11-12] MEDS ORDERED: Hydrogen Peroxide 1.5 % Solution MT SCH (16:00)
--- NOTE | 2023-11-12 17:49 | NUR ---
Shift Summary Pt had surgery today and has been intubated since. She is sedated with a RASS of -1. Lungs are clear, SR/ST with rate right around 100, BP stable. Scant output from OGT. Midline DESEAN dressing has scant drainage on it, unchanged from when she got back from surgery. When repositioning pt, she nods yes when asked if she is having abdominal pain. IV pain meds given per orders. Sommer draining clear, dark yellow urine. Pt's son visited and was updated.
--- NOTE | 2023-11-12 20:10 | NUR ---
ASSUMED CARE AT 1900 PATIENT IS INTUBATED AND SEDATED ON PROPOFOL. OPENS EYES AND ABLE TO NOD YES/NO TO PAIN, MEDICATED PER EMAR. SP02 94% ON VENT AC VC 14/400/5/40%, RR 15. HR ST 110, BP STABLE. OG LIS, SMALL AMOUNT OF LIGHT BROWN BILE. CASON PATENT AND DRAINING MARIANNA URINE TO GRAVITY. DESEAN DRAIN TO MID ABD INCISION, SCANT DRANINAGE OUTLINED ON DRESSING. ABD FIRM. PATIENT REPOSITIONED AND ORAL CARE DONE
[2023-11-13] VITALS (56 sets, daily range): BP systolic 86–147; BP diastolic 52–122
[2023-11-13 03:17] LABS: Hematocrit 36.4 % (33.0-51.0); Hemoglobin 11.6 g/dL (11.5-16.0); Mean Corpuscular HGB 28.7 pg (26.0-34.0); Mean Corpuscular HGB Conc 31.9 g/dL (31.5-36.5); Mean Corpuscular Volume 90 fL (80-100); Mean Platelet Volume 9.4 fL (9.1-12.4); Platelet Count 333 K/mm3 (150-400); RDW Coefficient Variation 15.3 % (11.7-14.2); RDW Standard Deviation 51.3 fL (35.1-46.3); Red Blood Cell Count 4.04 M/mm3 (3.80-5.20); White Blood Cell Count 17.15 K/mm3 (4.00-11.30)
[2023-11-13 03:41] LABS: Calcium, Blood 7.9 mg/dL (8.5-10.1); Creatinine, Blood 0.62 mg/dL (0.40-1.00); Potassium, Blood 3.7 mmol/L (3.5-5.5)
--- NOTE | 2023-11-13 06:27 | NUR ---
SHIFT SUMMARY PATIENT REMAINS INTUBATED AND SEDATED ON PROPOFOL, PRN DILAUDID GIVEN FREQUENTLY THROUGH THE NIGHT FOR PAIN. PATIENT NODS YES/NO TO QUESTIONS AND FOLLOWS COMMANDS. SP02 94% ON VENT AC VC 14/400/5/40%, RR 18, SPUTUM CULTURE SENT. HR ST 110, BP STABLE. OG TO LIS WITH LIGHT PADILLA OUTPUT AT START OF SHIFT, NOW DARK BROWN/RED COLOR. CASON PATENT AND DRAINING MARIANNA URINE TO GRAVITY. MID ABD DESEAN DRESSING REMAINS IN PLACE, SCANT AMOUNT OF DRAINAGE ON DRESSING UNCHANGED SINCE START OF SHIFT. PATIENT REPOSITIONED Q2 HOURS.
[2023-11-13] MEDS ORDERED: dilTIAZem HCL 30 MG TAB PT SCH (08:25)
[2023-11-13] MEDS ORDERED: Docusate Sodium 100 MG UDC PT SCH (09:00)
[2023-11-13] MEDS ORDERED: Pantoprazole Sodium 40 MG Injection IV SCH (09:00)
[2023-11-13] MEDS ORDERED: HYDROmorphone HCl/Pf 1MG SYR IV PRN (10:15)
--- NOTE | 2023-11-13 10:31 | NUR ---
EXTUBATE DR. ZAVALA AT THE BEDSIDE AND SWITCHED PT TO SPONTANEOUS MODE SINCE PT IS ALERT AND FOLLOWING COMMANDS WITH PROPOFOL INFUSING. PT DOING WELL ON SPONTANEOUS SO PROPOFOL STOPPED AND DR. ZAVALA GAVE OK TO EXTUBATE PT AFTER ABOUT 15 MINTUES TO GIVE TIME FOR PROPOFOL TO WEAR OFF A LITTLE. PT EXTUBATED ABOUT 20 MINUTES LATER AT 0955. RESTRAINTS REMOVED AT THAT TIME. PT PLACED ON 6L/NC. MEDICATED PT FOR PAIN SHE STATES SHE IS HAVING A LOT OF ABDOMINAL PAIN. DR. CALZADA TO THE BEDSIDE AND GAVE OK TO INCREASE DILAUDID TO 1MG EVERY 2 HOURS PRN. PT'S PAIN STILL A 6/10 AND HAVING TROUBLE COUGHING BECAUSE OF PAIN SO PT MEDICATED WITH ADDITIONAL 0.5MG DILAUDID. SPO2 CURRENTLY 94% ON 6L/NC AND PT ABLE TO TOLERATE WEAK COUGHS.
[2023-11-13] MEDS ORDERED: Nicotine 7 MG PATCH TOP SCH (10:45)
--- NOTE | 2023-11-13 11:54 | NUR ---
REASSESSMENT PT HAS REMAINED ON 6L/NC SINCE EXTUBATION. PT GIVEN INCENTIVE SPIROMETER AND PROVIDED EDUCATION ON HOW TO USE IT AND WHY. PT DEMONSTRATED APPROPRIATE USE. LUNGS ARE CLEAR ON THE L, QUIET WHEEZE ON THE R. WEAK COUGH, USING PILLOW TO BRACE ABDOMEN. SINUS TACH WITH RATE IN THE 1TEENS, BP STABLE. DRAINAGE ON MIDLINE DRESSING UNCHANGED FROM THIS MORNING. NO BOWEL TONES AUSCULTATED, ABDOMEN REMAINS TENDER. SPOKE WITH PT'S TYRELL AND PROVIDED UPDATE.
--- NOTE | 2023-11-13 17:13 | NUR ---
SHIFT SUMMARY PT WAS EXTUBATED TODAY AND HAS REMAINED ON 6L/NC. OCCASIONALLY SHE NEEDS TO BE ENCOURAGED TO DEEP BREATHE OR COUGH IN ORDER TO BUMP HER OXYEN SATURATIONS UP. HER LUNGS HAVE OCCASIONAL WHEEZES. USING THE INCENTIVE SPIROMETER WHEN PROMPTED. SINUS TACH IN LOW 100S, BP STABLE. RECEIVING PAIN MEDICATION EVERY 2 HOURS FOR ABDOMINAL PAIN. DRESSING ON MIDLINE INCISION UNCHANGED. NO BOWEL TONES AUSCULTATED. CASON WITH CL YELLOW URINE. PT'S TYRELL VISITED AND WAS UPDATED.
[2023-11-13] MEDS ORDERED: Docusate Sodium 100 MG Cap PO SCH (21:00)
--- NOTE | 2023-11-13 21:06 | NUR ---
ASSUMPTION OF CARE: PT ALERT AND ORIENTED, FOLLOWING COMMANDS AND IS PLEASANT WITH CARE. PT ON 6L NC/OXIMASK AT SLEEP WITH SPO2 90'S. PT DENIES SOB. RR 20'S. LUNGS WHEEZY/CLEAR. PT ENCOURAGED TO COUGH AND DEEP BREATHE AND USE INCENTIVE SPIROMETER. NEEDLE MOLDER IN PLACE, ST WITH HR 110'S. SBP 100'S. PT DENIES CHEST PAIN/PRESSURE. CASON IN PLACE, PATENT AND DRAINING YELLOW URINE TO GRAVITY. NO BM YET. BT PRESENT IN ALL QUADRANTS. PIVS INTACT AND INFUSING. LR AT 75 ML/HR. DESEAN TO MIDLINE ABDOMEN, DRESSING HAS SOME OLD AREAS OF OOZING, OUTLINED WITH MARKER. ABDOMEN SLIGHTLY DISTENDED AND TENDER TO TOUCH. PT MEDICATED PER EMAR FOR PAIN WITH RELIEF. TOLERATIING ICE CHIPS WITH NO COMPLAINTS. BED LOW AND LOCKED, CALL LIGHT IN REACH.
[2023-11-14] VITALS (18 sets, daily range): BP systolic 96–134; BP diastolic 47–102
[2023-11-14] MEDS ORDERED: dilTIAZem HCL 30 MG TAB PO SCH
[2023-11-14 03:29] LABS: Hematocrit 33.7 % (33.0-51.0); Hemoglobin 10.7 g/dL (11.5-16.0); Mean Corpuscular HGB 28.9 pg (26.0-34.0); Mean Corpuscular HGB Conc 31.8 g/dL (31.5-36.5); Mean Corpuscular Volume 91 fL (80-100); Mean Platelet Volume 9.1 fL (9.1-12.4); Platelet Count 339 K/mm3 (150-400); RDW Coefficient Variation 14.7 % (11.7-14.2); RDW Standard Deviation 49.3 fL (35.1-46.3); White Blood Cell Count 15.81 K/mm3 (4.00-11.30)
[2023-11-14 03:50] LABS: Albumin, Blood 2.2 g/dL (3.4-5.0); Anion Gap 7 mmol/L (3-11); Blood Urea Nitrogen 10 mg/dL (8-24); Bun/Creatinine Ratio 21.6 (12.0-20.0); CO2, Blood 30 mmol/L (21-32); Calcium, Blood 8.8 mg/dL (8.5-10.1); Chloride, Blood 105 mmol/L (98-108); Creatinine, Blood 0.46 mg/dL (0.40-1.00); Glomerular Filtration Rate 107 (60-); Glucose, Blood 100 mg/dL (70-99); Phosphorus, Blood 2.1 mg/dL (2.5-4.9); Potassium, Blood 3.6 mmol/L (3.5-5.5); Sodium, Blood 138 mmol/L (136-145)
[2023-11-14] MEDS ORDERED: Potassium Phosphate Dibasic 15 MM in Dextrose 5% 250 ML IV STA (04:01)
--- NOTE | 2023-11-14 05:39 | NUR ---
SHIFT SUMMARY: NO ACUTE CHANGES OVERNIGHT. PT REMAINS ALERT AND ORIENTED, ABLE TO REST OFF AND ON T/O THE SHIFT. REMAINS ON 6L OXIMASK WITH SPO2 >88%. DENIES SOB. LUNGS REMAIN A LITTLE WHEEZY IN THE UPPER LOBES, CLEAR IN BASES. RR 20'S-30'S. STOCK RAISER IN PLACE, ST WITH HR 100'S. SBP 120'S. DENIES CHEST PAIN/ PRESSURE. LR INFUSING AT 75 ML/HR. PIVS INTACT. CASON REMAINS PATENT AND DRAINING TO GRAVITY. NO BM THIS SHIFT. TOLERATING ICE CHIPS. ABDOMEN REMAINS DISTENDED AND TENDER TO TOUCH. NO NEW DRAINAGE NOTED FROM DESEAN. BED LOW AND LOCKED, CALL LIGHT IN REACH.
--- NOTE | 2023-11-14 17:29 | NUR ---
SHIFT SUMMARY PT REMAINS ALERT AND ORIENTED. PT AWAKE MOST SHIFT. BP STABLE. HR REMAINS NSR. O2 SATS HAVE REMAINED ABOVE 90% ON 4L NC. PT COMPLAINS OF PAIN MOST OF SHIFT AND MEDICATED PER EMAR. PT ABLE TO REPOSITION HERSELF IN THE BED INDEPENDENTLY. CASON CATHETER PATENT AND DRAINING CLEAR YELLOW URINE. PLAN TO DISCONTINUE CASON TOMORROW PER DR. MINAYA ONCE PATIENT IS ABLE TO TOLERATE MORE ACTIVITY. BOWEL TONES X4, BUT PT NOT PASSING GAS OR BM. PT TOLERATING CLEAR LIQUID DIET. DENIES ANY NAUSEA. STATUS CHANGED TO SURGICAL THIS AM. WILL CONTINUE TO MONITOR AND REPORT TO ONCOMING RN
--- NOTE | 2023-11-14 19:56 | NUR ---
ASSUMPTION OF CARE: RECEIVED REPORT FROM ANDERS Allen RN AT 1900. PT ALERT AND ORIENTED AND FOLLOWING COMMANDS. PT SURGICAL STATUS. ABLE TO GET UP TO CHAIR WITH NURSE ASSIST, NO COMPLAINTS. PT ON 4L NC WITH SPO2 >90%. WHEEZES NOTED IN UPPER LOBES BUT CLEAR IN THE BASES. RECORDER OF DEEDS IN PLACE, SR WITH HR90'S. SBP 110'S. DENIES CHEST PAIN/PRESSURE. DENIES SOB. PT STATES ABDOMEN IS RADIAL DRILL PRESS OPERATOR FOR PLASTIC TO THE TOUCH. BT ACTIVE IN ALL QUADRANTS. DESEAN TO MIDLINE, NO NEW DRAINAGE NOTED. PT TOLERATING PO INTAKE WELL. CASON REMAINS PATENT AND DRAINING TO GRAVITY. NO BM YET. PT CURRENTLY IN CHAIR PER REQUEST. CALL LIGHT IN REACH.
[2023-11-15] VITALS (18 sets, daily range): BP systolic 98–133; BP diastolic 54–79
[2023-11-15 03:31] LABS: Hematocrit 36.1 % (33.0-51.0); Hemoglobin 11.4 g/dL (11.5-16.0); Mean Corpuscular HGB 28.7 pg (26.0-34.0); Mean Corpuscular HGB Conc 31.6 g/dL (31.5-36.5); Mean Corpuscular Volume 91 fL (80-100); Platelet Count 385 K/mm3 (150-400); RDW Coefficient Variation 14.4 % (11.7-14.2); RDW Standard Deviation 47.9 fL (35.1-46.3); Red Blood Cell Count 3.97 M/mm3 (3.80-5.20); White Blood Cell Count 13.46 K/mm3 (4.00-11.30)
[2023-11-15 04:01] LABS: Bun/Creatinine Ratio 17.8 (12.0-20.0); Calcium, Blood 9.2 mg/dL (8.5-10.1); Creatinine, Blood 0.39 mg/dL (0.40-1.00); Potassium, Blood 3.8 mmol/L (3.5-5.5)
--- NOTE | 2023-11-15 05:48 | NUR ---
SHIFT SUMMARY: NO ACUTE CHANGES OVERNIGHT. REMAINS ALERT AND ORIENTED. PT BECAME UPSET WITH STAFF THIS EVENING BECAUSE SHE STATED SHE JUST WANTED TO SLEEP AND WAS TIRED OF THE INTERRUPTIONS. ALLOWED PT TO REST MUCH POSSIBLE T/O THE SHIFT. REMAINS ON 5L NC WITH SPO2 >90%. RR 12-20'S. SUMMER ASSOCIATE IN PLACE, SR/ST, HR 90'S-100'S. SBP 110'S-120'S. NO C/O CHEST PAIN/PRESSURE. PT HAD C/O PAIN FREQUENTLY T/O THE NIGHT, MEDICATED FREQUENTLY PER EMAR. ABDOMEN REMAINS DISTENDED AND TENDER TO TOUCH. DESEAN TO MIDLINE INTACT NO NEW DRAINAGE. CASON DRAINING TO GRAVITY. PIV INTACT AND SALINE LOCKED. NO BM THIS SHIFT. BED LOW AND LOCKED, CALL LIGHT IN REACH.
[2023-11-15] MEDS ORDERED: HYDROmorphone HCl/Pf 1MG SYR IV PRN (10:50)
[2023-11-15] MEDS ORDERED: Bisacodyl 10 MG Supp PR ONE (11:15)
[2023-11-15] MEDS ORDERED: HYDROmorphone 1 MG/ML 30 ML Bag IV PRN (11:25)
--- NOTE | 2023-11-15 19:28 | NUR ---
SHIFT SUMMARY: NEURO: PATIENT ALERT AND ORIENTED X4 WITH SOME MILD FORGETFULNESS AT TIMES. PATIENT REPORTS "I AM NOT USUALLY LIKE THIS". PATIENT ABLE TO MAKE NEEDS KNOWN AND PARTICIPATE IN CARE. PATIENT FATIGUED AT TIMES. PATIENT UP TO THE CHAIR ONCE AND UP TO THE BSC 3 TIMES. PATIENT REPORTS UNDERSTANDING THAT WE WILL NEED TO INCREASE HER ACTIVITY EVERY DAY. PATIENT PERHAPS DID NOT UNDERSTAND ROLE OF PT, BUT DID DECLINE TO SEE PT TODAY. PATIENT DENIES NUMBNESS/TINGLING THROUGHOUT. PAIN CONTROLLED WITH PRN NORCO AND DILAUDID. WHEN DISCUSSING THE LIVESTOCK DEALER, PATIENT REPORTED THAT SHE DIDN'T WANT MEDICINE IF SHE DIDN'T NEED IT. ULTIMATELY, THE PATIENT REPORTED THAT HER PAIN HAS BEEN CONTROLLED TO A TOLERABLE LEVEL AND SHE DIDN'T WANT TO CHANGE TO A LIVESTOCK DEALER. THIS WAS REPORTED TO DR. MINAYA. RESPIRATORY: PATIENT REMAINED ON 6L THROUGHOUT THE SHIFT. SPO2 PRIMARILY >90%. TO HELP INCREASE HER SPO2, PATIENT USED HER INCENTIVE SPIROMETER OR DID DEEP BREATHING/COUGHING WHEN REQUESTED BY THE RN. PATIENT DID NOT APPEAR TO INITIATE THESE ACTIVITIES WITHOUT CUEING. INCREASE IN SPO2 ALSO NOTED WITH RT TREATMENTS. PATIENT DENIED SHORTNESS OF BREATH AT REST OR WITH ACTIVITY. NO SHORTNESS OF BREATH NOTED WITH GETTING OUT OF BED. CARDIAC: PATIENT'S VITALS STABLE THROUGHOUT THE SHIFT. HR IN THE 80S-90S AND MAPS >65. STRONG PULSES IN ALL 4 EXTREMITIES. PATIENT DENIED CHEST PAIN OR PRESSURE. GI/: CASON CATHETER DC'D THIS AM. PATIENT ABLE TO VOID BY THE END OF THE SHIFT. YELLOW URINE WITH A MILD ODOR NOTED. PATIENT REPORTED PASSING FLATUS BY THE END OF SHIFT. SUPPOSITORY GIVEN THIS MORNING WITH NO BM RESULTS. PATIENT TOLERATED CLEAR LIQUIDS AND PO MEDICATIONS WITHOUT NAUSEA. NO CHANGES TO MIDLINE DRESSING DURING THE SHIFT. PSYCHSOCIAL: PATIENT CALM AND COOPERATIVE WITH THE RN.
--- NOTE | 2023-11-15 19:42 | NUR ---
ASSUMED CARE OF PATIENT AT 1900. REPORT RECEIVED FROM ALLYSON PAN. PT RESTING IN BED. RECEIVING 2LPM O2 VIA NC WITH SATURATION OF 98%. STATES THAT HER PAIN IS AT A 7 AND INCREASING. MEDICATED PER EMAR. DESEAN DRESSING VISUALIZED, MARGINS OUTLINED. VSS, NO ACUTE NEEDS IDENTIFIED AT THIS TIME. SEE SHIFT ASSESSMENT FOR FULL DETAILS.
--- NOTE | 2023-11-15 19:53 | NUR ---
ASSUMED CARE OF PATIENT AT 1900. REPORT RECEIVED FROM ALLYSON PAN. PT RESTING IN BED. DINNER TRAY UNTOUCHED AND PT STATES HE IS DONE WITH IT. PT DENIES PAIN AND SOB. CONTINOUS CARDIAC MONITORING REFLECTS SINUS RHYTHM WITH HR IN 90'S, BP 97/79, MAP OF 86. ON RA WITH SATURATIONS OF 92%. NO ACUTE NEEDS IDENTIFED AT THIS TIME. SEE SHIFT ASSESSMENT FOR FULL DETAILS.
[2023-11-15] MEDS ORDERED: HYDROmorphone HCl/Pf 1MG SYR IV ONE (20:25)
[2023-11-16 00:25] VITALS: BP 136/65
[2023-11-16 03:55] LABS: Hematocrit 34.7 % (33.0-51.0); Mean Corpuscular HGB 30.7 pg (26.0-34.0); Mean Corpuscular HGB Conc 31.7 g/dL (31.5-36.5); Mean Platelet Volume 10.8 fL (9.1-12.4); Platelet Count 518 K/mm3 (150-400); RDW Standard Deviation 66.2 fL (35.1-46.3); Red Blood Cell Count 3.58 M/mm3 (3.80-5.20); White Blood Cell Count 10.13 K/mm3 (4.00-11.30)
[2023-11-16 03:59] LABS: Mean Corpuscular Volume 97 fL (80-100)
--- NOTE | 2023-11-16 05:38 | NUR ---
SHIFT SUMMARY PT REMAINED ALERT AND ORIENTED X 4 T/O ENTIRETY OF SHIFT. ABLE TO FOLLOW COMMANDS, MAKE PURPOSEFUL MOVEMENTS, AND MAKE NEEDS KNOWN. AFEBRILE. REPORTED PAIN IN ABDOMEN. MEDICATED PER EMAR WITH GOOD BENEFIT. CONTINOUS CARDIAC MONITORING IN PLACE SHOWING SR WITH HR IN 80'S-90'S. SBP 100'S-130'S. DENIES CP. ON 6LPM O2 VIA NC, RECEIVED TWO NEBULIZER TX'S FROM RT. UTILIZES INCENTIVE SPIROMETER AT BEDSIDE APPROPRIATELY. CLEAR LIQUID DIET. NO BM THIS SHIFT. AMBULATES TO BSC WITH NURSE ASSIST, VOIDING DARK YELLOW URINE. DESEAN DRESSING MIDLINE, NO ADDITIONAL CHANGES TO MARGINS MARKED AT START OF SHIFT. PIV TO RFA. WILL CONTINUE TO MONITOR AND REPORT TO ONCOMING RN.
[2023-11-16] MEDS ORDERED: Docusate Sodium 100 MG Cap PO PRN (07:14)
[2023-11-16 14:32] VITALS: BP 104/64
--- NOTE | 2023-11-16 14:52 | NUR ---
Pt transferred to room 224. Report given to RN assuming care. All personal belongings sent with patient to new room. VS stable at time of transfer.
--- NOTE | 2023-11-16 16:47 | NUR ---
SHIFT SUMMARY PT ARRIVED TO UNIT FROM ICU, TRANSFERED VIA WHEELCHAIR. PAIN MANAGED PER EMAR. DRESSING TO MIDLINE REMAINS UNCHANGED. PT TOLERATING DIET WELL, NO INCREASED NAUSEA. PT WORKED WELL WITH THERAPY, ABLE TO STAND AND TRANSFER WITH 1 ASSIST. REMAINS ON 5L NASAL CANULA WILL WEAN PT TOLERATES. PASSING FLATUS, NO BM'S TODAY.
[2023-11-16 19:49] VITALS: BP 113/65
[2023-11-16] MEDS ORDERED: Piperacillin/Tazobactam Sod 3.375 GM in NS 100 ML IV SCH (20:00)
[2023-11-17 00:43] VITALS: BP 136/75
[2023-11-17 03:07] VITALS: BP 135/70
--- NOTE | 2023-11-17 06:34 | NUR ---
SHIFT SUMMARY NOC. PT POD 6 FOR L COLECTOMY WITHOUT OSTOMY. PT WAS VERY GROGGY/DROWSY AT START OF SHIFT. A/O X3, SLOW TO RESPOND BUT ANSWERED QUESTIONS APPROPRIATLY. PT MIDLINE DESEAN DRESSING IS C/D/I ASIDE FROM SOME MARKED DRAINAGE OUTLINES. PT MEDICATED FOR PAIN WITH REPORTED RELIEF. PT VOIDING AND TOLERATING DIET. PT RESTED WITH EYES CLOSED AND CALL LIGHT IN REACH.
[2023-11-17 08:09] VITALS: BP 127/79
[2023-11-17 08:52] LABS: Hematocrit 31.6 % (33.0-51.0); Mean Corpuscular HGB Conc 31.6 g/dL (31.5-36.5); Mean Platelet Volume 8.7 fL (9.1-12.4); Platelet Count 423 K/mm3 (150-400); RDW Coefficient Variation 14.1 % (11.7-14.2); RDW Standard Deviation 47.5 fL (35.1-46.3); Red Blood Cell Count 3.45 M/mm3 (3.80-5.20); White Blood Cell Count 12.18 K/mm3 (4.00-11.30)
[2023-11-17 08:53] LABS: Mean Corpuscular Volume 92 fL (80-100)
[2023-11-17 08:59] LABS: Bun/Creatinine Ratio 13.6 (12.0-20.0); Calcium, Blood 8.6 mg/dL (8.5-10.1); Creatinine, Blood 0.52 mg/dL (0.40-1.00); Potassium, Blood 3.4 mmol/L (3.5-5.5)
[2023-11-17] MEDS ORDERED: Enoxaparin 40 MG/0.4 ML SYR SC SCH (10:00)
--- NOTE | 2023-11-17 10:15 | NUR ---
TITRATED OXYGEN TO 3L NASAL CANULA. PT AMBULATED TO RESTROOM AND BACK. OXYGEN MAINTAIN AT 93%. DENIES SOB.
[2023-11-17 14:04] VITALS: BP 139/62
--- NOTE | 2023-11-17 16:23 | NUR ---
SHIFT SUMMARY PT HAS REMAINED AA0X4 DURING SHIFT. NO GROGGINESS OR LETHARGY NOTED WITH DISCONTINUATION OF DILAUDID. PAIN CONTROLLED PER EMAR. PT REPORTS IMPROVEMENT TODAY. PASSING FLATUS. MINIMAL BLOATING WITH PO INTAKE. AMBULATING WELL TO RESTROOM. TITRATED TO 3L NASAL CANULA. WILL DIP TO LOW 90'S WITH EXERTION, BUT QUICKLY RECOVERS. DRESSING REMAINS UNCHANGED AT THIS TIME.
[2023-11-17 19:16] VITALS: BP 146/77
[2023-11-17 23:41] VITALS: BP 137/77
[2023-11-18 01:41] VITALS: BP 147/64
[2023-11-18 05:08] VITALS: BP 152/80
[2023-11-18 07:30] VITALS: BP 144/74
--- NOTE | 2023-11-18 07:42 | NUR ---
SHIFT SUMMARY NOC. PT POD 7 FOR LEFT COLECTOMY W/O OSTOMY. PT A/O X4. PT'S MIDLINE DESEAN DRESSING IS COMPRESSED AND C/D/I ASIDE FROM MARKED DRAINAGE OUTLINES. PT MEDICATED FOR PAIN WITH OXY AND REPORTS RELIEF OF SX. PT VOIDING URINE AND TOLERATING DIET. PT RESTED WITH EYES CLOSED AND CALL LIGHT IN REACH.
[2023-11-18 11:15] VITALS: BP 123/75
[2023-11-18] MEDS ORDERED: DOCU100 PO (12:35)
[2023-11-18] MEDS ORDERED: HYDACE10B PO (12:36)
[2023-11-18] MEDS ORDERED: VISBIOME 112.51 EACH PO (12:36)
[2023-11-18] MEDS ORDERED: LEVO750 PO (12:37)
--- NOTE | 2023-11-18 13:34 | NUR ---
DISCHARGE PT READY TO BE TAKEN OUT TO HER RIDE TO GO HOME. ALL PERSONAL ITEMS ALREADY PACKED UP IN BAGS WHICH WERE TAKEN WITH HER.
--- NOTE | 2023-11-18 14:10 | NUR ---
DISCHARGE: PACKET PRINTED AND PT EDUCATED. SCRIPTS SENT TO SAVE ON PHARMACY. PT GIVEN EXTRA DRESSINGS FOR INCISION. POWERGLIDE DC'D WNL, TIP INTACT. PT LEFT UNIT VIA WHEELCHAIR AT ABOUT 1345 WITH DRAWER IN PLAIN LOOM KEN.
== END 2023-11-18 13:30 | disposition home or self-care (01) | DRG 853 ==
LOC: ER 19:21 → ICUE 23:37 → SURS 23:37 → ERHOLD 23:37 → ICUE 11-12 00:42 → SURS 11-16 13:47
PROVIDERS: Hospitalist; Internal Medicine; Internal Medicine Critical Care Medicine; Student in an Organized Health Care Education/Training Program; Surgery; ADMIT Student in an Organized Health Care Education/Training Program
PROC: 0DBN0ZZ Excision of Sigmoid Colon, Open Approach (ICD-10-PCS; principal; 2023-11-12 08:45)
PROC: 3E03329 Introduction of Other Anti-infective into Peripheral Vein, Percutaneous Approach (ICD-10-PCS; 2023-11-16)
DX: A41.9 Sepsis, unspecified organism (principal); J96.01 Acute respiratory failure with hypoxia; K65.9 Peritonitis, unspecified; K57.20 Diverticulitis of large intestine with perforation and abscess without bleeding; I47.10 Supraventricular tachycardia, unspecified; J44.9 Chronic obstructive pulmonary disease, unspecified; F41.9 Anxiety disorder, unspecified; K52.9 Noninfective gastroenteritis and colitis, unspecified; F17.210 Nicotine dependence, cigarettes, uncomplicated; E66.9 Obesity, unspecified; Z79.899 Other long term (current) drug therapy; Z98.890 Other specified postprocedural states; Z68.33 Body mass index [BMI] 33.0-33.9, adult; K66.8 Other specified disorders of peritoneum; Z90.49 Acquired absence of other specified parts of digestive tract; Z98.51 Tubal ligation status; Z90.721 Acquired absence of ovaries, unilateral; Z87.81 Personal history of (healed) traumatic fracture; Z99.81 Dependence on supplemental oxygen
CPT/HCPCS: 36415; 36600; 71045; 71046; 74177; 80048; 80053; 80069; 81001; 82803; 82947; 83605; 83690; 83735; 83880; 84484; 85025; 85027; 86850; 86900; 86901; 87040; 87070; 87205; 88307; 93005; 93010; 94002; 94003; 94640; 94664; 94760; 94761; 94762; 96365-59; 96375; 97116; 97161; 97165; 97530; 97535; 99285-25; A9270; C1751; C9113; J0171; J1170; J1650; J2371; J2405; J2543; J2704; J3010; J7030; J7050; J7060; J7120; Q9967

== ENCOUNTER 2023-11-25 20:58 | Inpatient (IN) | payer MEDICARE ==
[~2023-11-25] VITALS: Ht 165.1 cm; Wt 90.5 kg
[~2023-11-25 20:58] MED LIST changes: +DOCU100 PO; +HYDACE10B PO; +LEVO750 PO; +VISBIOME 112.51 EACH PO
[2023-11-25] MEDS ORDERED: Morphine Sulfate 4 MG/1 ML Injection IV ONE (21:15)
[2023-11-25] MEDS ORDERED: NS 1,000 ML IV SCH (21:15)
[2023-11-25] MEDS ORDERED: Ondansetron HCl 2 MG / ML 2ML Vial IV ONE (21:15)
[2023-11-25] MEDS ORDERED: MONT10T PO (21:18)
[2023-11-25 21:34] LABS: Hematocrit 35.5 % (33.0-51.0); Hemoglobin 11.6 g/dL (11.5-16.0); Mean Corpuscular HGB Conc 32.7 g/dL (31.5-36.5); Mean Corpuscular Volume 86 fL (80-100); Mean Platelet Volume 8.8 fL (9.1-12.4); Platelet Count 821 K/mm3 (150-400); RDW Coefficient Variation 16.1 % (11.7-14.2); RDW Standard Deviation 50.5 fL (35.1-46.3); Red Blood Cell Count 4.15 M/mm3 (3.80-5.20)
[2023-11-25 21:53] LABS: BAND PERCENT MAN 21 % (0-8); BASOPHILS PERCENT MAN 0 % (0-2); EOSINOPHILS PERCENT MAN 0 % (0-6); LYMPHOCYTES ABSOLUTE MAN 2.94 K/mm3 (0.84-5.20); LYMPHOCYTES PERCENT MAN 11 % (21-46); MONOCYTES ABSOLUTE MAN 2.14 K/mm3 (0.16-1.47); MONOCYTES PERCENT MAN 8 % (4-13); SEG NEUTROPHILS PERCENT MAN 60 % (41-73); TOTAL CELLS COUNTED 100
[2023-11-25 21:54] LABS: Albumin/Globulin Ratio 0.4 (0.8-1.8); Bilirubin, Total 0.5 mg/dL (0.1-1.0); Bun/Creatinine Ratio 39.9 (12.0-20.0); Calcium, Blood 8.6 mg/dL (8.5-10.1); Creatinine, Blood 0.55 mg/dL (0.40-1.00); Globulin, Blood 4.6 g/dL (2.2-4.0); Potassium, Blood 3.4 mmol/L (3.5-5.5); Total Protein, Blood 6.6 g/dL (6.4-8.2)
[2023-11-25] MEDS ORDERED: Piperacillin/Tazobactam Sod 4.5 GM in NS 100 ML IV ONE (23:10)
[2023-11-25] MEDS ORDERED: HYDROmorphone HCl/Pf 1MG SYR IV ONE (23:15)
[2023-11-26] VITALS (28 sets, daily range): BP systolic 105–159; BP diastolic 47–117
[2023-11-26] MEDS ORDERED: HYDROmorphone HCl/Pf 1MG SYR IV PRN (00:15)
[2023-11-26] MEDS ORDERED: Naloxone HCl 0.4MG / ML 1ML Vial IV PRN (00:15)
[2023-11-26] MEDS ORDERED: Potassium Chloride 40 MEQ in NS 250 ML IV ONE (00:25)
[2023-11-26] MEDS ORDERED: Albuterol HFA200 ACT/6.7 GM INH INH PRN (01:30)
[2023-11-26 04:51] LABS: Hematocrit 34.9 % (33.0-51.0); Hemoglobin 11.3 g/dL (11.5-16.0); Mean Corpuscular HGB 28.2 pg (26.0-34.0); Mean Corpuscular HGB Conc 32.4 g/dL (31.5-36.5); Mean Corpuscular Volume 87 fL (80-100); Mean Platelet Volume 9.1 fL (9.1-12.4); Platelet Count 874 K/mm3 (150-400); RDW Coefficient Variation 16.4 % (11.7-14.2); RDW Standard Deviation 52.4 fL (35.1-46.3); Red Blood Cell Count 4.01 M/mm3 (3.80-5.20); White Blood Cell Count 27.73 K/mm3 (4.00-11.30)
[2023-11-26 05:30] LABS: BAND PERCENT MAN 15 % (0-8); BASOPHILS PERCENT MAN 0 % (0-2); EOSINOPHILS PERCENT MAN 0 % (0-6); LYMPHOCYTES % ATYPICAL MANUAL 1 % (0-0); LYMPHOCYTES ABSOLUTE MAN 1.94 K/mm3 (0.84-5.20); LYMPHOCYTES PERCENT MAN 6 % (21-46); MONOCYTES ABSOLUTE MAN 2.77 K/mm3 (0.16-1.47); MONOCYTES PERCENT MAN 10 % (4-13); NEUTROPHILS ABSOLUTE MAN 23.01 K/mm3 (1.96-9.15); SEG NEUTROPHILS PERCENT MAN 68 % (41-73); TOTAL CELLS COUNTED 100
[2023-11-26 05:32] LABS: Albumin/Globulin Ratio 0.4 (0.8-1.8); Bilirubin, Total 0.6 mg/dL (0.1-1.0); Bun/Creatinine Ratio 37.8 (12.0-20.0); Calcium, Blood 8.6 mg/dL (8.5-10.1); Creatinine, Blood 0.61 mg/dL (0.40-1.00); Globulin, Blood 4.5 g/dL (2.2-4.0); Potassium, Blood 4.1 mmol/L (3.5-5.5); Total Protein, Blood 6.5 g/dL (6.4-8.2)
[2023-11-26] MEDS ORDERED: Piperacillin/Tazobactam Sod 4.5 GM in NS 100 ML IV SCH (06:00)
[2023-11-26] MEDS ORDERED: dilTIAZem HCL 120 MG CAP.CD PO SCH (09:00)
[2023-11-26] MEDS ORDERED: Docusate Sodium 100 MG Cap PO SCH (09:00)
[2023-11-26] MEDS ORDERED: Sertraline HCl 50 MG Tab PO SCH (09:00)
[2023-11-26] MEDS ORDERED: Lactobacil 2-S.Thermo-Bifido 1 1 Cap PO SCH (09:00)
[2023-11-26] MEDS ORDERED: Montelukast Sodium 10 MG Tab PO SCH (09:00)
[2023-11-26] MEDS ORDERED: Lactated Ringer's 1,000 ML IV SCH ×2 (10:10→12:00)
[2023-11-26] MEDS ORDERED: Acetaminophen 325 MG TABLET PO PRN (10:15)
--- NOTE | 2023-11-26 13:17 | NUR ---
WHILE SPOTCHECKING PATIENTS VITALS OXYGEN WAS 76%. PT HAD TAKEN NASAL CANULA OUT. PLACED ON 5L NASAL CANULA, SATURATIONS MAINTAINING AT 93%. PT TAKING VERY SHALLOW BREATHS AND REPORTS SOME DIFFICULTY BREATHING R/T ABD DISTENTION. NOTIFIED DR. EAST AND DR. MONTANO. ORDERS FOR CHEST XRAY AND PLAN TO TAKE TO THE OR STILL. CONTINOUS BIOX PLACED ON PATIENT FOR CLOSER OBSERVATION OF OXYGENATION.
[2023-11-26] MEDS ORDERED: Lactated Ringer's 1,000 ML IV ONE (13:22)
[2023-11-26] MEDS ORDERED: propofoL 20 ML IV ONE (13:48)
[2023-11-26] MEDS ORDERED: Rocuronium Bromide 10 MG/ML 5ML Injection IV ONE ×2 (13:48→15:27)
[2023-11-26] MEDS ORDERED: SuccINYLCHOLINE Chloride 100 MG/5 ML 5MLSYR ONE (13:48)
[2023-11-26] MEDS ORDERED: FentaNYL Citrate 50 MCG/ML 2 ML Injection ONE ×3 (13:49→17:36)
--- NOTE | 2023-11-26 13:53 | NUR ---
PT TO PROCEDURE AT THIS TME.
[2023-11-26] MEDS ORDERED: Ipratropium/Albuterol SulF 2.5-0.5MG/3 ML Amp ONE (13:54)
[2023-11-26] MEDS ORDERED: Bupivacaine 0.5% Inj 10 ML Vial ONE (13:54)
[2023-11-26] MEDS ORDERED: Oxymetazoline 0.05% Nasal Relief Spray 15mL BTL ONE (14:01)
[2023-11-26] MEDS ORDERED: Lidocaine 2% Jelly Uro-Jet ONE (14:01)
--- NOTE | 2023-11-26 14:12 | NUR ---
PT ARRIVES TO PACU VIA [facility] FROM RM 208 AT 1345 ON 06/20L/NC. c/o MOUTH & LIPS DRY/COOL CLOTH GIVEN. AFEBRILE/VSS. SURGICAL PACK COMPLETE. SURGICAL HAT/PAS SLEEVES/BP CUFF PLACED. LR AT TKO. DUO NEB GIVEN AT 1355 PER SATHISH VILLARREAL CRNA. TO OR 2 VIA [facility] w/OR RECRUITMENT COORDINATOR AT 1410.
[2023-11-26] MEDS ORDERED: Sugammadex Sodium 200 MG/2ML SDV (100 MG/ML) ONE (15:03)
[2023-11-26] MEDS ORDERED: Dexamethasone Sod Phos 10 MG/ML 1ML VIAL ONE ×2 (15:26→18:03)
[2023-11-26] MEDS ORDERED: Ondansetron HCl 2 MG / ML 2ML Vial ONE (15:26)
[2023-11-26] MEDS ORDERED: Albumin (Human) 12.5gm/250ml 250 ML IV ONE (16:03)
[2023-11-26] MEDS ORDERED: Piperacillin/Tazobactam Sod 4.5 GM ONE (16:13)
--- NOTE | 2023-11-26 18:01 | NUR ---
SHIFT SUMMARY PT LEFT FOR PROCEDURE AT 2, PLAN IS FOR PATIENT TO GO TO ICU AFTER SURGERY. BELONGINGS TAKEN TO ICU 4.
[2023-11-26] MEDS ORDERED: Ropivacaine 0.5% HCl/Pf 5 MG/ML 20ML VIAL ONE (18:32)
[2023-11-26] MEDS ORDERED: [UNRECOGNIZED DRUG - OTHER] IV PRN (18:50)
[2023-11-26] MEDS ORDERED: FENTANYL CITRATE 50 MCG/ML IV PRN (18:50)
[2023-11-26] MEDS ORDERED: fentaNYL citrate 50 MCG/ML 30MLSYR IV PRN (20:00)
--- NOTE | 2023-11-26 20:25 | NUR ---
RECOVERY FROM OR RECIEVED FROM OR BY BED. 10L VIA NRB, SEE RECOVERY ROOM ASSESSMENT.
--- NOTE | 2023-11-26 20:26 | NUR ---
ASSUMED CARE 2000 PATIENT IN BED, OXYMASK ON 10L, DESEAN DRESSING LID LINE ABDOMEN, COLOSTOMY PINK IN COLOR, CASON PATENT DRAINING TO GRAVITY, LUNGS SOUNDS COARSE AND RHONI BILATERAL, RADIAL PULSES STRONG, PEDAL PULSES FAINT, ABSENT BOWEL SOUNDS. CALL LIGHT WITHIN REACH.
[2023-11-27] VITALS (24 sets, daily range): BP systolic 95–157; BP diastolic 50–129
[2023-11-27] MEDS ORDERED: Ondansetron HCl 2 MG / ML 2ML Vial IV PRN (01:40)
[2023-11-27] MEDS ORDERED: NS 250 ML IV PRN (02:50)
[2023-11-27 03:47] LABS: Hematocrit 31.3 % (33.0-51.0); Hemoglobin 10.1 g/dL (11.5-16.0); Mean Corpuscular HGB 28.5 pg (26.0-34.0); Mean Corpuscular HGB Conc 32.3 g/dL (31.5-36.5); Mean Corpuscular Volume 88 fL (80-100); Mean Platelet Volume 8.9 fL (9.1-12.4); NRBC ABSOLUTE 0.03 K/mm3 (0.00-0.02); NRBC Auto 0.1 /100 WBC (0.0-0.2); Platelet Count 808 K/mm3 (150-400); RDW Coefficient Variation 17.2 % (11.7-14.2); RDW Standard Deviation 55.6 fL (35.1-46.3); Red Blood Cell Count 3.55 M/mm3 (3.80-5.20); White Blood Cell Count 28.87 K/mm3 (4.00-11.30)
[2023-11-27 04:11] LABS: Bun/Creatinine Ratio 41.6 (12.0-20.0); Calcium, Blood 8.5 mg/dL (8.5-10.1); Creatinine, Blood 0.58 mg/dL (0.40-1.00); Potassium, Blood 4.7 mmol/L (3.5-5.5)
[2023-11-27 04:38] LABS: BAND PERCENT MAN 18 % (0-8); BASOPHILS PERCENT MAN 0 % (0-2); EOSINOPHILS PERCENT MAN 0 % (0-6); LYMPHOCYTES % ATYPICAL MANUAL 1 % (0-0); LYMPHOCYTES ABSOLUTE MAN 3.46 K/mm3 (0.84-5.20); LYMPHOCYTES PERCENT MAN 11 % (21-46); MONOCYTES ABSOLUTE MAN 0.86 K/mm3 (0.16-1.47); MONOCYTES PERCENT MAN 3 % (4-13); MYELOCYTE ABSOLUTE MAN 0.28 K/mm3 (0.00-0.00); MYELOCYTE PERCENT MAN 1 % (0-0); NEUTROPHILS ABSOLUTE MAN 24.25 K/mm3 (1.96-9.15); SEG NEUTROPHILS PERCENT MAN 66 % (41-73); TOTAL CELLS COUNTED 100
--- NOTE | 2023-11-27 06:05 | NUR ---
SHIFT SUMMARY PATIENT HAS BEEN IN BED WITH SURGICAL INCISION MEDLINE WITH DESEAN DRESSING AND COLOSTOMY. PATIENT HAD EXPLORATORY LAP AND BOWEL RESECTION. AEROSPACE PHYSIOLOGICAL TECHNICIAN FENTANYL PUMP GIVING 20MCG CONTINUOUS WITH EXTRA FROM BUTTON. LR RUNNING AT 125MLS. PATIENT HAS BEEN WANTING SOMETHING TO DRINK AND CRYING BECAUSE MOUTH IS VERY DRY. PATIENT CAME TO ICU FROM OR WITH NWB MASK ON AT 10L, EXCHANGE FOR OXYMASK AND UP TO 12L OF O2. TILTRATED DOWN TO NASAL CANNULA AT 6L OF O2 91-93%, UPPER BILATERAL LUNGS COARSE AND RONCHI SOUNDING, LOWER BILATERAL LUNGS DIMINISHED. SISTER CALLED TO CHECK ON PATIENT, PATIENT STATED IT WAS OKAY TO GIVE HER INFORMATION. CASON PATENT AND DRAINING TO GRAVITY DARK YELLOW COLORED URINE. CALL LIGHT WITHIN REACH. WILL CONTINUE TO MONITOR.
[2023-11-27] MEDS ORDERED: Piperacillin/Tazobactam Sod 4.5 GM in NS 100 ML IV SCH (07:00)
[2023-11-27] MEDS ORDERED: Furosemide 10 MG / ML 2ML Vial IV ONE (07:50)
[2023-11-27] MEDS ORDERED: Lactated Ringer's 1,000 ML IV SCH (07:55)
[2023-11-27] MEDS ORDERED: Ipratropium/Albuterol SulF 2.5-0.5MG/3 ML Amp INH SCH (07:55)
[2023-11-27] MEDS ORDERED: Enoxaparin 40 MG/0.4 ML SYR SC SCH (09:00)
--- NOTE | 2023-11-27 09:58 | NUR ---
SURGEON TO BEDSIDE OK TO ADVANCE DIET TO CLEAR LIQUID. STATUS CHANGE TO SURGICAL. POC ONGOING.
--- NOTE | 2023-11-27 16:00 | NUR ---
PT TRANSFERRED TO ROOM ON ICU BED, TRANSFERRED TO SURGICAL FLOOR BED, A/O X 4, REPORTS PAIN AT 7-8/10 ON TRANSFER; PT'S BELONGINGS TRANSFERRED TO ROOM ON BED. RECVD REPORT FROM PREVIOUS EXTRUSION UTILITY WORKER, ASSUMED CARE OF PT. OSTOMY APPLIANCE PINK/BEEFY, NO OUTPUT. ABDOMINAL INCISIONS C/D/I
--- NOTE | 2023-11-27 16:43 | NUR ---
PT TRASPORTED TO 211 VIA BED REPORT GIVEN TO ALLYSON SAVAGE. PT IS A/O, SR-ST, BP WNL. ON 6 L NC, IS 1250 WITH ENCOURAGEMENT, LUNGS OCCASIONALLY COARSE, CLEARS WITH COUGH. TOLERATING CLEAR LIQUID DIET WELL. NO NAUSEA. NO OUTPUT FROM OSTOMY. STOMA PINK AND INTACT. NO BLEEDING. DEVICE INTACT. CASON TO GRAVITY, PATENT AND DRAINING CLEAR YELLOW URINE. SKIN WITH MIDLINE ABD INCISION, DESEAN DRAIN IN PLACE, INTACT WITH 3 SPOTS OF OLD BLOOD PRESENT. SURROUNDING SKIN PINK/WARM/DRY. NO OTHER SKIN ISSUES NOTED. PIV X2, LR AT 75ML/HR, NS TKO WITH ATB VIA IVPB. FENTANYL INFUSION WITH RATE OF 20 MCG/HR CONTINUOUS, GOOD PAIN CONTROL ACHIEVED. TRANPORTED TO SURGICAL FLOOR VIA HOSP BED WITH O2 AND IV PUMP ACCOMANIED BY 2 RN'S. PT DECLINED ANY FAMILY NOTIFICATION OF TRANSFER. POC ONGOING.
[2023-11-28 03:45] VITALS: BP 126/93
[2023-11-28] MEDS ORDERED: [UNRECOGNIZED DRUG - OTHER] IV PRN (04:00)
[2023-11-28] MEDS ORDERED: FENTANYL CITRATE 50 MCG/ML IV PRN (04:00)
[2023-11-28 04:27] LABS: Hematocrit 25.5 % (33.0-51.0); Hemoglobin 8.2 g/dL (11.5-16.0); Mean Corpuscular HGB 27.5 pg (26.0-34.0); Mean Corpuscular HGB Conc 32.2 g/dL (31.5-36.5); Mean Corpuscular Volume 86 fL (80-100); Mean Platelet Volume 8.9 fL (9.1-12.4); NRBC ABSOLUTE 0.05 K/mm3 (0.00-0.02); NRBC Auto 0.2 /100 WBC (0.0-0.2); Platelet Count 675 K/mm3 (150-400); RDW Coefficient Variation 16.8 % (11.7-14.2); RDW Standard Deviation 52.3 fL (35.1-46.3); Red Blood Cell Count 2.98 M/mm3 (3.80-5.20); White Blood Cell Count 29.73 K/mm3 (4.00-11.30)
[2023-11-28 04:47] LABS: Bun/Creatinine Ratio 36.5 (12.0-20.0); Calcium, Blood 8.2 mg/dL (8.5-10.1); Creatinine, Blood 0.47 mg/dL (0.40-1.00); Potassium, Blood 3.6 mmol/L (3.5-5.5)
[2023-11-28 05:26] LABS: BAND PERCENT MAN 9 % (0-8); BASOPHILS PERCENT MAN 0 % (0-2); EOSINOPHILS PERCENT MAN 0 % (0-6); LYMPHOCYTES % ATYPICAL MANUAL 1 % (0-0); LYMPHOCYTES ABSOLUTE MAN 2.97 K/mm3 (0.84-5.20); LYMPHOCYTES PERCENT MAN 9 % (21-46); METAMYELOCYTE ABSOLUTE MAN 0.29 K/mm3 (0.00-0.00); METAMYELOCYTE PERCENT MAN 1 % (0-0); MONOCYTES ABSOLUTE MAN 0.59 K/mm3 (0.16-1.47); MONOCYTES PERCENT MAN 2 % (4-13); MYELOCYTE ABSOLUTE MAN 0.29 K/mm3 (0.00-0.00); MYELOCYTE PERCENT MAN 1 % (0-0); NEUTROPHILS ABSOLUTE MAN 25.56 K/mm3 (1.96-9.15); SEG NEUTROPHILS PERCENT MAN 77 % (41-73); TOTAL CELLS COUNTED 100
--- NOTE | 2023-11-28 06:43 | NUR ---
SHIFT SUMMARY ASSUMED CARE APPROX 0300. POD 2-EX LAP W/BOWEL RESECTION W/COLOSTOMY. MIDLINE DESEAN DRESSING W/SOME SHADOWING. STOMA PINK, NO DRAINAGE NOTED, DID HAVE GAS IN OSTOMY BAG. DENIES N/V. REPORTS ABD PAIN/DISCOMFORT BUT IS MANAGED WELL W/BANQUET PREP COOK PUMP. VSS. SPO2 >90% ON 3L O2. CASON DRAINING TO GRAVITY. WBC TRENDING UP TO 29.73 TODAY & WILL INFORM ONCOMING DAY NURSE. CALL LIGHT IN REACH & WILL CONT TO MONITOR.
[2023-11-28 07:13] VITALS: BP 158/77
[2023-11-28 15:37] VITALS: BP 149/72
--- NOTE | 2023-11-28 18:40 | NUR ---
SHIFT SUMMARY POD2 EXP LAP ALANNA SBRESECT/OSTOMY, DESEAN WNL, OSTOMY/PASSING FLATUS. A&OX4, VSS/3LNC/BIOX, LEXX PO CLD, CASON PATENT DRAINING YELLOW URINE, WORKED WITH PT AND GOT TO SIDE OF BED/OTHERWISE BEDREST/REPOSITIONED, PAIN MANAGED WITH ROLL MECHANIC, LR 75, ABX PER EMAR. WILL REPORT TO ONCOMING NOC RN.
[2023-11-28 19:31] VITALS: BP 143/74
[2023-11-29 04:25] VITALS: BP 155/81
--- NOTE | 2023-11-29 04:36 | NUR ---
SHIFT SUMMARY POD 3 EX LAP W/ SB RESECTION AND COLOSTOMY PT SLEPT FOR MOST OF NIGHT. PAIN MANAGED BY ROUTE MANAGER. TOLERATING CLEAR LIQUIDS. CASON DRAINING CLEAR YELLOW URINE. OSTOMY RED IN COLOR AND BEEFY. STILL HAVING NI OUTPUT BUT HAVING SOME FLATUS. DESEAN TO MIDLINE HAS SOME DRAINAGE BUT OTHERWISE DRY AND INTACT. PT ON 3L NC, SATTING ABOVE 92%, CONT BIOX ON. VSS. NO OTHER CONCERNS AT THIS TIME, CALL LIGHT WITHIN REACH
[2023-11-29 06:39] LABS: Hematocrit 26.7 % (33.0-51.0); Hemoglobin 8.8 g/dL (11.5-16.0); Mean Corpuscular HGB 28.1 pg (26.0-34.0); Mean Corpuscular Volume 85 fL (80-100); Mean Platelet Volume 8.9 fL (9.1-12.4); NRBC ABSOLUTE 0.05 K/mm3 (0.00-0.02); NRBC Auto 0.2 /100 WBC (0.0-0.2); Platelet Count 659 K/mm3 (150-400); RDW Coefficient Variation 16.3 % (11.7-14.2); RDW Standard Deviation 50.9 fL (35.1-46.3); Red Blood Cell Count 3.13 M/mm3 (3.80-5.20); White Blood Cell Count 22.61 K/mm3 (4.00-11.30)
[2023-11-29 06:58] LABS: BAND PERCENT MAN 4 % (0-8); BASOPHILS PERCENT MAN 0 % (0-2); EOSINOPHILS PERCENT MAN 0 % (0-6); LYMPHOCYTES ABSOLUTE MAN 2.26 K/mm3 (0.84-5.20); LYMPHOCYTES PERCENT MAN 10 % (21-46); METAMYELOCYTE PERCENT MAN 4 % (0-0); MONOCYTES PERCENT MAN 4 % (4-13); NEUTROPHILS ABSOLUTE MAN 18.54 K/mm3 (1.96-9.15); SEG NEUTROPHILS PERCENT MAN 78 % (41-73); TOTAL CELLS COUNTED 100
[2023-11-29 07:16] LABS: Bun/Creatinine Ratio 24.9 (12.0-20.0); Creatinine, Blood 0.4 mg/dL (0.40-1.00); Potassium, Blood 3.6 mmol/L (3.5-5.5)
[2023-11-29 07:46] VITALS: BP 160/70
[2023-11-29 15:24] VITALS: BP 152/83
[2023-11-29] MEDS ORDERED: Lactated Ringer's 1,000 ML IV SCH (17:15)
--- NOTE | 2023-11-29 18:44 | NUR ---
SHIFT SUMMARY POD3 EXP LAP ALANNA SBRESECT/OSTOMY, DESEAN WNL, OSTOMY/PASSING FLATUS. A&OX4, VSS/3LNC/BIOX, LEXX PO CLD, VOIDING/BSC, PAIN MANAGED WITH PROBE OPERATOR, STAND PIVOT TO CHAIR/BSC/BED, UP TO CHAIR. WILL REPORT TO ONCOMING NOC RN.
[2023-11-29 19:06] VITALS: BP 140/88
[2023-11-29] MEDS ORDERED: Ipratropium/Albuterol SulF 2.5-0.5MG/3 ML Amp INH PRN (20:10)
[2023-11-30 02:11] VITALS: BP 151/78
--- NOTE | 2023-11-30 05:06 | NUR ---
SHIFT SUMMARY POD 4 EX LAP W/ SB RESECTION AND COLOSTOMY PT ABLE TO REST DURING THE NIGHT. PAIN MANAGED WITH APARTMENT RENTAL CLERK. PT TOLERATING CL, VOIDING WELL. OSTOMY PUTTING OUT SMALL AMOUNTS OF GAS, NO OUTPUT OTHERWISE. PT GETTING UP TO BSC WITH SBA FOPR LINE MANAGEMENT, TOLERATING WELL. DESEAN INTACT, COMPRESSED. PT REMAINS ON 3L NC TO MAINTAIN SATS ABOVE 92%. VSS. NO OTHER CONCERNS AT THIS TIME, CALL LIGHT WITHIN REACH
[2023-11-30 05:47] LABS: BASOPHILS ABSOLUTE AUTO 0.08 K/mm3 (0.00-0.23); BASOPHILS PERCENT AUTO 0 % (0-2); EOSINOPHILS PERCENT AUTO 1 % (0-6); Hematocrit 27.4 % (33.0-51.0); Hemoglobin 8.9 g/dL (11.5-16.0); IMMATURE GRAN ABSOLUTE AUTO 1.18 K/mm3 (0.00-0.10); IMMATURE GRAN PERCENT AUTO 5 % (0-1); LYMPHOCYTES ABSOLUTE AUTO 2.83 K/mm3 (0.84-5.20); LYMPHOCYTES PERCENT AUTO 11 % (21-46); MONOCYTES ABSOLUTE AUTO 0.97 K/mm3 (0.16-1.47); MONOCYTES PERCENT AUTO 4 % (4-13); Mean Corpuscular HGB Conc 32.5 g/dL (31.5-36.5); Mean Corpuscular Volume 86 fL (80-100); Mean Platelet Volume 8.9 fL (9.1-12.4); NEUTROPHILS ABSOLUTE AUTO 19.76 K/mm3 (1.96-9.15); NEUTROPHILS PERCENT AUTO 79 % (41-73); NRBC ABSOLUTE 0.07 K/mm3 (0.00-0.02); NRBC Auto 0.3 /100 WBC (0.0-0.2); Platelet Count 595 K/mm3 (150-400); RDW Coefficient Variation 15.7 % (11.7-14.2); RDW Standard Deviation 49.3 fL (35.1-46.3); Red Blood Cell Count 3.18 M/mm3 (3.80-5.20); White Blood Cell Count 25.02 K/mm3 (4.00-11.30)
[2023-11-30 06:12] LABS: Albumin, Blood 1.8 g/dL (3.4-5.0); Albumin/Globulin Ratio 0.4 (0.8-1.8); Bilirubin, Total 0.5 mg/dL (0.1-1.0); Bun/Creatinine Ratio 19.7 (12.0-20.0); Calcium, Blood 8.2 mg/dL (8.5-10.1); Creatinine, Blood 0.36 mg/dL (0.40-1.00); Potassium, Blood 3.3 mmol/L (3.5-5.5); Total Protein, Blood 5.8 g/dL (6.4-8.2)
[2023-11-30] MEDS ORDERED: Potassium Chloride 10 Meq Tablet SA PO ONE (07:00)
[2023-11-30 07:23] VITALS: BP 154/79
[2023-11-30] MEDS ORDERED: HYDROcodone 5-APAP 325 TAB PO PRN (07:35)
[2023-11-30] MEDS ORDERED: Ondansetron 4 MG SoluTab MM PRN (07:35)
[2023-11-30] MEDS ORDERED: FentaNYL Citrate 50 MCG/ML 2 ML Injection IV PRN (07:40)
--- NOTE | 2023-11-30 10:39 | NUR ---
PRODUCT INSPECTION COORDINATOR DC'D AT 1010. PT GIVEN NARCO AND EDUCATED ON PAIN MANAGEMENT AND CARE PLAN TO SWITCH TO ORAL PAIN MEDICATION. PT VERBALIZED UNDERSTANDING.
[2023-11-30 15:36] VITALS: BP 145/78
--- NOTE | 2023-11-30 17:56 | NUR ---
SUMMARY: PT IS POST OP DAY 4 SB RESECTION WITH COLOSTOMY. PT IS A/O, DOING WELL, VSS. SURGICAL SITE WNL, NO CHANGE. PT HAS DONE WELL TRANSITIONING TO ORAL PAIN MANAGEMENT, SEE EMAR. FLATTUS IN OSTOMY BAG, NO OUTPUT NOTED TODAY. PLAN TO ADVANCE TO FULL LIQUIDS PER DR. EAST. PT ENCOURAGED TO AMBULATE WITH THERAPY AND PT UP TO CHAIR FOR ALL MEALS, SBA. ABLE TO WEAN TO 2 L NC, CONT BIOX ON. NO ACUTE SAFETY CONCERNS.
[2023-11-30 19:53] VITALS: BP 154/73
[2023-12-01 04:24] VITALS: BP 146/72
[2023-12-01 04:40] LABS: BASOPHILS ABSOLUTE AUTO 0.06 K/mm3 (0.00-0.23); BASOPHILS PERCENT AUTO 0 % (0-2); EOSINOPHILS PERCENT AUTO 2 % (0-6); Hematocrit 27.1 % (33.0-51.0); Hemoglobin 8.7 g/dL (11.5-16.0); IMMATURE GRAN ABSOLUTE AUTO 1.06 K/mm3 (0.00-0.10); IMMATURE GRAN PERCENT AUTO 4 % (0-1); LYMPHOCYTES ABSOLUTE AUTO 2.85 K/mm3 (0.84-5.20); LYMPHOCYTES PERCENT AUTO 12 % (21-46); MONOCYTES ABSOLUTE AUTO 1.09 K/mm3 (0.16-1.47); MONOCYTES PERCENT AUTO 5 % (4-13); Mean Corpuscular HGB 28.2 pg (26.0-34.0); Mean Corpuscular HGB Conc 32.1 g/dL (31.5-36.5); Mean Corpuscular Volume 88 fL (80-100); Mean Platelet Volume 9.1 fL (9.1-12.4); NEUTROPHILS ABSOLUTE AUTO 18.56 K/mm3 (1.96-9.15); NEUTROPHILS PERCENT AUTO 77 % (41-73); NRBC ABSOLUTE 0.04 K/mm3 (0.00-0.02); NRBC Auto 0.2 /100 WBC (0.0-0.2); Platelet Count 535 K/mm3 (150-400); RDW Coefficient Variation 15.6 % (11.7-14.2); RDW Standard Deviation 49.2 fL (35.1-46.3); Red Blood Cell Count 3.09 M/mm3 (3.80-5.20); White Blood Cell Count 24.02 K/mm3 (4.00-11.30)
--- NOTE | 2023-12-01 04:45 | NUR ---
SHIFT SUMMARY POD 5 EX LAP W/ SB RESECTIONAND COLOSTOMY PT SLEPT FOR MOST OF NIGHT. PAIN MANAGED PER EMAR. PT TOLERATING CLEARS ADVANCED TO FULLS. PT TRIED SOME PUDDING AND TOLERATED WELL. PT HAVING STOOL OUTPUT IN OSTOMY. PT AMB TO THE BATHROOM WITH 1P SBA. VOIDING. DESEAN HAS DRAINAGE, STILL HOLDING COMPRESSION. PT WEANED DOWN TO 1L NC SATTING ABOVE 94%. VSS. NO OTHER COCERNS AT THIS TIME, CALL LIGHT WITHIN REACH
[2023-12-01 05:08] LABS: Albumin, Blood 1.8 g/dL (3.4-5.0); Albumin/Globulin Ratio 0.5 (0.8-1.8); Bilirubin, Total 0.3 mg/dL (0.1-1.0); Bun/Creatinine Ratio 19.6 (12.0-20.0); Calcium, Blood 8.2 mg/dL (8.5-10.1); Creatinine, Blood 0.41 mg/dL (0.40-1.00); Globulin, Blood 3.9 g/dL (2.2-4.0); Potassium, Blood 3.4 mmol/L (3.5-5.5); Total Protein, Blood 5.7 g/dL (6.4-8.2)
[2023-12-01] MEDS ORDERED: Potassium Chloride 10 Meq Tablet SA PO ONE (06:05)
[2023-12-01 07:11] VITALS: BP 151/72
[2023-12-01 15:03] VITALS: BP 144/77
[2023-12-01 19:18] VITALS: BP 138/75
[2023-12-02 04:07] VITALS: BP 153/79
[2023-12-02 05:33] LABS: BASOPHILS ABSOLUTE AUTO 0.04 K/mm3 (0.00-0.23); BASOPHILS PERCENT AUTO 0 % (0-2); EOSINOPHILS ABSOLUTE AUTO 0.51 K/mm3 (0.00-0.68); EOSINOPHILS PERCENT AUTO 2 % (0-6); Hematocrit 27.1 % (33.0-51.0); Hemoglobin 8.6 g/dL (11.5-16.0); IMMATURE GRAN ABSOLUTE AUTO 0.97 K/mm3 (0.00-0.10); IMMATURE GRAN PERCENT AUTO 4 % (0-1); LYMPHOCYTES ABSOLUTE AUTO 2.83 K/mm3 (0.84-5.20); LYMPHOCYTES PERCENT AUTO 11 % (21-46); MONOCYTES ABSOLUTE AUTO 1.18 K/mm3 (0.16-1.47); MONOCYTES PERCENT AUTO 5 % (4-13); Mean Corpuscular HGB Conc 31.7 g/dL (31.5-36.5); Mean Corpuscular Volume 88 fL (80-100); Mean Platelet Volume 9.1 fL (9.1-12.4); NEUTROPHILS ABSOLUTE AUTO 19.81 K/mm3 (1.96-9.15); NEUTROPHILS PERCENT AUTO 78 % (41-73); NRBC ABSOLUTE 0.03 K/mm3 (0.00-0.02); NRBC Auto 0.1 /100 WBC (0.0-0.2); Platelet Count 558 K/mm3 (150-400); RDW Coefficient Variation 15.8 % (11.7-14.2); RDW Standard Deviation 49.4 fL (35.1-46.3); Red Blood Cell Count 3.07 M/mm3 (3.80-5.20); White Blood Cell Count 25.34 K/mm3 (4.00-11.30)
[2023-12-02 06:09] LABS: Bun/Creatinine Ratio 17.8 (12.0-20.0); Calcium, Blood 8.5 mg/dL (8.5-10.1); Creatinine, Blood 0.45 mg/dL (0.40-1.00); Potassium, Blood 3.8 mmol/L (3.5-5.5)
[2023-12-02 07:41] VITALS: BP 152/77
[2023-12-02 15:24] VITALS: BP 135/72
--- NOTE | 2023-12-02 16:40 | NUR ---
SHIFT SUMMARY NO ACUTE CHANGES. DESEAN DRESSING REMOVED AND MEDIPORE PLACED. CDI. COLOSTOMY APPLIANCE CHANGED TODAY. FLATUS + BROWN LIQ STOOL PRESENT IN BAG. 2 NORCO FOR PAIN CONTROL. INDEP IN ROOM. IV ABX PER ORDERS. VSS. USES CALL LIGHT APPROPRIATELY.
[2023-12-02 19:45] VITALS: BP 148/80
[2023-12-03 02:36] VITALS: BP 156/74
[2023-12-03 05:26] LABS: BASOPHILS ABSOLUTE AUTO 0.06 K/mm3 (0.00-0.23); BASOPHILS PERCENT AUTO 0 % (0-2); EOSINOPHILS ABSOLUTE AUTO 0.36 K/mm3 (0.00-0.68); EOSINOPHILS PERCENT AUTO 2 % (0-6); Hematocrit 27.4 % (33.0-51.0); Hemoglobin 8.7 g/dL (11.5-16.0); IMMATURE GRAN PERCENT AUTO 3 % (0-1); LYMPHOCYTES ABSOLUTE AUTO 2.94 K/mm3 (0.84-5.20); LYMPHOCYTES PERCENT AUTO 13 % (21-46); MONOCYTES ABSOLUTE AUTO 1.21 K/mm3 (0.16-1.47); MONOCYTES PERCENT AUTO 5 % (4-13); Mean Corpuscular HGB 28.2 pg (26.0-34.0); Mean Corpuscular HGB Conc 31.8 g/dL (31.5-36.5); Mean Corpuscular Volume 89 fL (80-100); Mean Platelet Volume 8.9 fL (9.1-12.4); NEUTROPHILS ABSOLUTE AUTO 17.58 K/mm3 (1.96-9.15); NEUTROPHILS PERCENT AUTO 77 % (41-73); Platelet Count 576 K/mm3 (150-400); RDW Coefficient Variation 16.3 % (11.7-14.2); RDW Standard Deviation 50.4 fL (35.1-46.3); Red Blood Cell Count 3.08 M/mm3 (3.80-5.20); White Blood Cell Count 22.85 K/mm3 (4.00-11.30)
[2023-12-03 05:54] LABS: Albumin/Globulin Ratio 0.5 (0.8-1.8); Bilirubin, Total 0.3 mg/dL (0.1-1.0); Bun/Creatinine Ratio 16.1 (12.0-20.0); Calcium, Blood 8.6 mg/dL (8.5-10.1); Creatinine, Blood 0.44 mg/dL (0.40-1.00); Globulin, Blood 4.3 g/dL (2.2-4.0); Potassium, Blood 3.8 mmol/L (3.5-5.5); Total Protein, Blood 6.3 g/dL (6.4-8.2)
--- NOTE | 2023-12-03 06:01 | NUR ---
SHIFT SUMMARY POD 7 EX LAP c NEW COLOSTOMY & ALANNA. NO ACUTE CHANGES OVERNIGHT. VSS. TOLERATING DIET. MIDLINE MEDIPORE c SHADOWING ON BOTTOM OF DRESSING, OTHERWISE D/I. OSTOMY APPLIANCE INTACT, PASSING FLATUS & SMALL AMOUTS OF BROWN LIQUID OUTPUT. IV ABX INFUSING PER EMAR. IND IN ROOM. PT REPORTS PAIN TOLERABLE, MEDICATED PER EMAR. CALL LIGHT IN REACH, BED IN LOWEST POSITION, WILL REPORT TO DAY RN.
[2023-12-03 07:27] VITALS: BP 168/79
--- NOTE | 2023-12-03 10:40 | NUR ---
PATIENT IS INDP TO BATHROOM. ENCOURGED AND OFFERED TO GO ON WALK WITH PATIENT. PATIENT STATED" I TOLD THEM IM NOT WALKING TODAY." RN NOTIFIED.
[2023-12-03 14:28] VITALS: BP 150/77
--- NOTE | 2023-12-03 17:43 | NUR ---
SUMMARY NO ACUTE CHANGES T/O SHIFT. PT INDEPENDENT IN ROOM. OSTOMY PUTTING OUT FLATUS AND SMALL AMT LIQUID STOOL AND SMALL PIECE OF FORMED STOOL. MEDICATED PER ORDERS FOR PAIN T/O DAY. TOLERATING REGULAR DIET. CALL LIGHT IN REACH.
[2023-12-03 19:31] VITALS: BP 164/75
[2023-12-04 03:51] LABS: BASOPHILS ABSOLUTE AUTO 0.08 K/mm3 (0.00-0.23); BASOPHILS PERCENT AUTO 0 % (0-2); EOSINOPHILS ABSOLUTE AUTO 0.34 K/mm3 (0.00-0.68); EOSINOPHILS PERCENT AUTO 2 % (0-6); Hematocrit 27.5 % (33.0-51.0); Hemoglobin 8.7 g/dL (11.5-16.0); IMMATURE GRAN ABSOLUTE AUTO 0.56 K/mm3 (0.00-0.10); IMMATURE GRAN PERCENT AUTO 3 % (0-1); LYMPHOCYTES ABSOLUTE AUTO 2.78 K/mm3 (0.84-5.20); LYMPHOCYTES PERCENT AUTO 13 % (21-46); MONOCYTES ABSOLUTE AUTO 1.27 K/mm3 (0.16-1.47); MONOCYTES PERCENT AUTO 6 % (4-13); Mean Corpuscular HGB 28.2 pg (26.0-34.0); Mean Corpuscular HGB Conc 31.6 g/dL (31.5-36.5); Mean Corpuscular Volume 89 fL (80-100); Mean Platelet Volume 8.8 fL (9.1-12.4); NEUTROPHILS ABSOLUTE AUTO 16.99 K/mm3 (1.96-9.15); NEUTROPHILS PERCENT AUTO 77 % (41-73); NRBC ABSOLUTE 0.02 K/mm3 (0.00-0.02); NRBC Auto 0.1 /100 WBC (0.0-0.2); Platelet Count 644 K/mm3 (150-400); RDW Coefficient Variation 16.5 % (11.7-14.2); RDW Standard Deviation 52.5 fL (35.1-46.3); Red Blood Cell Count 3.09 M/mm3 (3.80-5.20); White Blood Cell Count 22.02 K/mm3 (4.00-11.30)
--- NOTE | 2023-12-04 04:00 | NUR ---
BIOX DECREASED O2 SATS PT BIOX WAS GOING OFF, CHRISTINA AND THIS RN ENTERED ROOM TO SEE THAT PT SATS HAD DROPPED TO THE UPPER 60'S. CHEMICAL PRODUCTION MACHINE OPERATOR IN ROOM SHORTLY BEFORE I ENTERED AND REPORTS THAT SHE NOTICED THAT THE NUMBER HAD DROPPED INTO THE UPPER 50'S. I DID NOT OBSERVE THIS, BUT NOTED HER SATS TO BE IN THE 60'S WHEN I ENTERED THE ROOM. PT WAS SLEEPING AND SHE DID NOT HAVE HER OXYGEN IN. PT EASILY AWOKE FROM SLEEP, PT A/OX4, SPEECH COHERENT. BLOOD PRESSURE, AND OTHER VITAL SIGNS STABLE. SATS IMMEDIATELY REBOUNDED IN THE 90'S ONCE AWAKE. PT NOW HAS HER OXYGEN IN AND REMINDED TO KEEP IN WHILE SLEEPING. RESP APPEAR E/U.
[2023-12-04 04:03] VITALS: BP 139/70
[2023-12-04 04:23] LABS: Albumin/Globulin Ratio 0.4 (0.8-1.8); Bilirubin, Total 0.3 mg/dL (0.1-1.0); Bun/Creatinine Ratio 23.6 (12.0-20.0); Calcium, Blood 8.9 mg/dL (8.5-10.1); Creatinine, Blood 0.38 mg/dL (0.40-1.00); Globulin, Blood 4.6 g/dL (2.2-4.0); Potassium, Blood 3.9 mmol/L (3.5-5.5); Total Protein, Blood 6.6 g/dL (6.4-8.2)
--- NOTE | 2023-12-04 05:12 | NUR ---
SHIFT SUMMARY PT HAS RESTED T/O THE NIGHT. PT DESATS WHEN NOT WEARING O2 WHEN SLEEPING, SEE PREVIOUS NURSE'S NOTE. PT HAS BEEN UP AND AMBULATING TO THE BATHROOM. OSTOMY PUTTING OUT BROWN FORMED STOOL. PLAN OF CARE UNCHANGED. MEDICATED FOR PAIN PRN. PT A/OX4, MAKES NEEDS KNOWN. BED IN LOWEST POSITION, CALL LIGHT WITHIN REACH.
[2023-12-04 07:22] VITALS: BP 150/74
[2023-12-04] MEDS ORDERED: Piperacillin/Tazobactam Sod 4.5 GM in NS 100 ML IV SCH (08:00)
--- NOTE | 2023-12-04 09:47 | NUR ---
PT SATS DROPPING TO 80S WHILE TRYING TO SLEEP 02 INCREASED TO 2L. HAD PT DEMONSTRATE USE OF IS AND INSTRUCTED PT TO USE EVERY HOUR WHILE AWAKE. ADVISED PT NEEDED TO AMBULATE IN [place]. PT VERBALIZED UNDERSTANDING. RESTING IN BED AT THIS TIME. 02 95% ON 2L NC. REPORTED TO DR MCARTHUR THAT PT SATS DROPPING AT REST. INSTRUCTED TO ENCOURAGE IS USE.
[2023-12-04 15:19] VITALS: BP 126/70
--- NOTE | 2023-12-04 17:30 | NUR ---
SUMMARY NO ACUTE CHANGES T/O SHIFT. PT ENCOURAGED TO USE IS AND AMBULATE AFTER SATS WERE DROPPING TO 80S ON RA WHEN AT REST. DR PALAFOX. PT DEMONSTRATED IS USE THIS AM. ADVISED PT TO USE IS EVERY HOUR WHILE AWAKE. PT MEDICATED PER ORDERS FOR PAIN T/O SHIFT. IV ABX PER ORDERS. PT TOLERATING REGULAR DIET AND OSTOMY PRODUCING FLATUS AND SOFT BROWN STOOL. DRESSINGS TO MIDLINE ABD CHANGED D/T SATURATION AT INFERIOR END. PT TOLERATED WELL. INDEPENDENT IN ROOM. CALL LIGHT IN REACH.
[2023-12-04 19:17] VITALS: BP 144/81
[2023-12-05 04:25] VITALS: BP 149/74
--- NOTE | 2023-12-05 04:28 | NUR ---
SHIFT SUMMARY RAY WAS ALERT AND FULLY ORIENTED ON ASSESSMENT. PT MEDICATED FOR PAIN T/O SHIFT, UP INDEPENDENTLY TO BR. SOME SEROSANGUINEOUS DRAINAGE NOTED TO BOTTOM OF ABD DRESSING. NO CHANGES TO PT CONDITION.
[2023-12-05 04:45] LABS: BASOPHILS ABSOLUTE AUTO 0.07 K/mm3 (0.00-0.23); BASOPHILS PERCENT AUTO 0 % (0-2); EOSINOPHILS ABSOLUTE AUTO 0.44 K/mm3 (0.00-0.68); EOSINOPHILS PERCENT AUTO 2 % (0-6); Hematocrit 28.2 % (33.0-51.0); IMMATURE GRAN PERCENT AUTO 2 % (0-1); LYMPHOCYTES ABSOLUTE AUTO 3.12 K/mm3 (0.84-5.20); LYMPHOCYTES PERCENT AUTO 15 % (21-46); MONOCYTES ABSOLUTE AUTO 1.33 K/mm3 (0.16-1.47); MONOCYTES PERCENT AUTO 6 % (4-13); Mean Corpuscular HGB 28.4 pg (26.0-34.0); Mean Corpuscular HGB Conc 31.9 g/dL (31.5-36.5); Mean Corpuscular Volume 89 fL (80-100); Mean Platelet Volume 8.7 fL (9.1-12.4); NEUTROPHILS ABSOLUTE AUTO 15.95 K/mm3 (1.96-9.15); NEUTROPHILS PERCENT AUTO 75 % (41-73); NRBC ABSOLUTE 0.02 K/mm3 (0.00-0.02); NRBC Auto 0.1 /100 WBC (0.0-0.2); Platelet Count 795 K/mm3 (150-400); RDW Coefficient Variation 16.9 % (11.7-14.2); RDW Standard Deviation 53.1 fL (35.1-46.3); Red Blood Cell Count 3.17 M/mm3 (3.80-5.20); White Blood Cell Count 21.31 K/mm3 (4.00-11.30)
[2023-12-05 05:08] LABS: Bun/Creatinine Ratio 19.9 (12.0-20.0); Calcium, Blood 8.7 mg/dL (8.5-10.1); Creatinine, Blood 0.45 mg/dL (0.40-1.00); Potassium, Blood 4.1 mmol/L (3.5-5.5)
[2023-12-05 07:36] VITALS: BP 148/70
[2023-12-05 15:52] VITALS: BP 150/75
--- NOTE | 2023-12-05 19:27 | NUR ---
SHIFT SUMMARY POD 9 EX LAP WITH OSTOMAY, A/OX4, VSS, TOLERATING PO, SOFT OUTPUT FROM STOMA, PT DOES NOT ENGAGE IN OSTOMY CARE/EDUCATION, REFUSES THERAPY BUT IS INDEPENDENT IN THE ROOM. NO ACUTE EVENTS THIS SHIFT, CALL LIGHT IN REACH.
[2023-12-05 19:40] VITALS: BP 154/81
[2023-12-06 02:28] VITALS: BP 156/81
--- NOTE | 2023-12-06 05:04 | NUR ---
SHIFT SUMMARY RAY WAS A/O X4 AT START OF SHIFT. PT CONDITION IS UNCHANGED FROM PREVIOUS SHIFT. PT REQUIRING LESS PAIN MEDICATION THIS SHIFT. LOWER END OF PT INSCISION IS PRODUCING PURULENT EXUDATE, DRESSING CHANGED THIS SHIFT. PT RESTING
[2023-12-06 05:13] LABS: BASOPHILS ABSOLUTE AUTO 0.08 K/mm3 (0.00-0.23); BASOPHILS PERCENT AUTO 0 % (0-2); EOSINOPHILS ABSOLUTE AUTO 0.34 K/mm3 (0.00-0.68); EOSINOPHILS PERCENT AUTO 2 % (0-6); Hematocrit 28.4 % (33.0-51.0); IMMATURE GRAN PERCENT AUTO 2 % (0-1); LYMPHOCYTES ABSOLUTE AUTO 3.01 K/mm3 (0.84-5.20); LYMPHOCYTES PERCENT AUTO 15 % (21-46); MONOCYTES ABSOLUTE AUTO 1.38 K/mm3 (0.16-1.47); MONOCYTES PERCENT AUTO 7 % (4-13); Mean Corpuscular HGB 28.6 pg (26.0-34.0); Mean Corpuscular HGB Conc 31.7 g/dL (31.5-36.5); Mean Corpuscular Volume 90 fL (80-100); Mean Platelet Volume 8.8 fL (9.1-12.4); NEUTROPHILS ABSOLUTE AUTO 15.16 K/mm3 (1.96-9.15); NEUTROPHILS PERCENT AUTO 75 % (41-73); Platelet Count 878 K/mm3 (150-400); RDW Coefficient Variation 17.1 % (11.7-14.2); RDW Standard Deviation 54.8 fL (35.1-46.3); Red Blood Cell Count 3.15 M/mm3 (3.80-5.20); White Blood Cell Count 20.27 K/mm3 (4.00-11.30)
[2023-12-06 05:48] LABS: Albumin, Blood 2.1 g/dL (3.4-5.0); Albumin/Globulin Ratio 0.4 (0.8-1.8); Bilirubin, Total 0.2 mg/dL (0.1-1.0); Bun/Creatinine Ratio 19.3 (12.0-20.0); Creatinine, Blood 0.47 mg/dL (0.40-1.00); Globulin, Blood 4.7 g/dL (2.2-4.0); Potassium, Blood 4.3 mmol/L (3.5-5.5); Total Protein, Blood 6.8 g/dL (6.4-8.2)
[2023-12-06 07:12] VITALS: BP 147/75
--- NOTE | 2023-12-06 19:16 | NUR ---
SHIFT SUMMARY POD10 EX LAP WITH OSTOMY, A/OX4, VSS, TOLERATING PO, INDEPENDENT IN THE ROOM, PAIN WELL MANAGED, CALLS APPROPRIATELY. NO ACUTE EVENTS THIS SHIFT, CALL LIGHT IN REACH.
[2023-12-06 19:39] VITALS: BP 146/65
[2023-12-06] MEDS ORDERED: NS 250 ML IV PRN (20:30)
[2023-12-07 04:20] VITALS: BP 141/74
[2023-12-07 05:01] LABS: BASOPHILS ABSOLUTE AUTO 0.06 K/mm3 (0.00-0.23); BASOPHILS PERCENT AUTO 0 % (0-2); EOSINOPHILS ABSOLUTE AUTO 0.32 K/mm3 (0.00-0.68); EOSINOPHILS PERCENT AUTO 2 % (0-6); Hematocrit 28.8 % (33.0-51.0); Hemoglobin 9.3 g/dL (11.5-16.0); IMMATURE GRAN ABSOLUTE AUTO 0.18 K/mm3 (0.00-0.10); IMMATURE GRAN PERCENT AUTO 1 % (0-1); LYMPHOCYTES ABSOLUTE AUTO 3.16 K/mm3 (0.84-5.20); LYMPHOCYTES PERCENT AUTO 17 % (21-46); MONOCYTES ABSOLUTE AUTO 1.24 K/mm3 (0.16-1.47); MONOCYTES PERCENT AUTO 7 % (4-13); Mean Corpuscular HGB 28.5 pg (26.0-34.0); Mean Corpuscular HGB Conc 32.3 g/dL (31.5-36.5); Mean Corpuscular Volume 88 fL (80-100); NEUTROPHILS ABSOLUTE AUTO 13.59 K/mm3 (1.96-9.15); NEUTROPHILS PERCENT AUTO 73 % (41-73); RDW Coefficient Variation 16.7 % (11.7-14.2); RDW Standard Deviation 52.9 fL (35.1-46.3); Red Blood Cell Count 3.26 M/mm3 (3.80-5.20); White Blood Cell Count 18.55 K/mm3 (4.00-11.30)
[2023-12-07 05:05] LABS: Mean Platelet Volume 9.2 fL (9.1-12.4); Platelet Count 891 K/mm3 (150-400)
--- NOTE | 2023-12-07 05:36 | NUR ---
SHIFT SUMMARY PT HAS RESTED T/O THE NIGHT. PT MEDICATED FOR ABD PAIN PRN PER EMAR. ABD INCISION WITH PURULENT DRAINAGE, DRESSING CHANGED. IV ANTIBIOTICS PER EMAR. WBC'S ARE TRENDING DOWN. VITALS STABLE, PT AFEBRILE. PT HAS BEEN INDEPENDENT IN THE ROOM. MAKES NEEDS KNOWN. BED IN LOWEST POSITION, CALL LIGHT WITHIN REACH.
[2023-12-07 05:46] LABS: Albumin, Blood 2.1 g/dL (3.4-5.0); Albumin/Globulin Ratio 0.5 (0.8-1.8); Bilirubin, Total 0.2 mg/dL (0.1-1.0); Bun/Creatinine Ratio 25.9 (12.0-20.0); Calcium, Blood 8.7 mg/dL (8.5-10.1); Creatinine, Blood 0.46 mg/dL (0.40-1.00); Globulin, Blood 4.5 g/dL (2.2-4.0); Potassium, Blood 4.2 mmol/L (3.5-5.5); Total Protein, Blood 6.6 g/dL (6.4-8.2)
[2023-12-07 07:14] VITALS: BP 141/67
[2023-12-07] MEDS ORDERED: HYDR1TAB94 PO (13:09)
[2023-12-07] MEDS ORDERED: AMOCLA875 PO (13:09)
[2023-12-07 14:14] VITALS: BP 94/63
--- NOTE | 2023-12-07 15:48 | NUR ---
DISCHARGE: PT SHOWERED AND NEW ABD DRESSING/ OSTOMY APPLIANCE PLACED BEFORE DC. DC PACKET PRINTED AND PT EDUCATED. PT GIVEN SUPPLIES FOR OSTOMY AND WOUND DRESSINGS. PT VERBALIZED UNDERSTANDING OF AT HOME CARE. PT ALSO TO BE FOLLOWED BY HH. PT LEFT UNIT VIA WHEELCHAIR WITH CHRISTINA JAIMES AT THIS TIME
== END 2023-12-07 15:50 | disposition home or self-care (01) | DRG 856 ==
LOC: ER 20:58 → SURS 23:51 → ERHOLD 23:51 → ICUE 23:51 → SURS 11-26 01:26 → ICUE 11-26 14:39 → SURS 11-27 16:37
PROVIDERS: Emergency Medicine; Family Medicine; Family Medicine Adult Medicine; Student in an Organized Health Care Education/Training Program; Surgery; ADMIT Student in an Organized Health Care Education/Training Program
PROC: 0D1M0Z4 Bypass Descending Colon to Cutaneous, Open Approach (ICD-10-PCS; 2023-11-26)
PROC: 0DB80ZZ Excision of Small Intestine, Open Approach (ICD-10-PCS; 2023-11-26)
PROC: 0DBM0ZZ Excision of Descending Colon, Open Approach (ICD-10-PCS; principal; 2023-11-26 11:30)
DX: T81.44XA Sepsis following a procedure, initial encounter (principal); J96.21 Acute and chronic respiratory failure with hypoxia; I47.10 Supraventricular tachycardia, unspecified; E87.6 Hypokalemia; J44.9 Chronic obstructive pulmonary disease, unspecified; F41.1 Generalized anxiety disorder; D64.9 Anemia, unspecified; F17.210 Nicotine dependence, cigarettes, uncomplicated; Y83.9 Surgical procedure, unspecified as the cause of abnormal reaction of the patient, or of later complication, without mention of misadventure at the time of the procedure; K76.0 Fatty (change of) liver, not elsewhere classified; Z98.890 Other specified postprocedural states; Z90.79 Acquired absence of other genital organ(s); Z90.721 Acquired absence of ovaries, unilateral; Z79.899 Other long term (current) drug therapy; Z90.49 Acquired absence of other specified parts of digestive tract; Z98.51 Tubal ligation status; Z71.6 Tobacco abuse counseling; E66.9 Obesity, unspecified; Z68.31 Body mass index [BMI] 31.0-31.9, adult
CPT/HCPCS: 36415; 71045; 74177; 80048; 80053; 83605; 83735; 85025; 87040; 88305; 93005; 93010; 94640; 94664; 94760; 94762; 96361; 96374-59; 96375; 97110; 97116; 97162; 97530; 99285-25; A9270; C8929; J0330; J1100; J1170; J1650; J1940; J2270; J2405; J2543; J2704; J2795; J3010; J3480; J7030; J7050; J7120; P9045; Q9957; Q9967

== ENCOUNTER → 2024-02-09 | Outpatient (CLI) | payer MEDICARE ==
[~2024-02-09] MED LIST changes: +AMOCLA875 PO; +HYDR1TAB94 PO; +MONT10T PO
[2024-02-09 14:30] LABS: BASOPHILS ABSOLUTE AUTO 0.09 K/mm3 (0.00-0.23); BASOPHILS PERCENT AUTO 1 % (0-2); EOSINOPHILS ABSOLUTE AUTO 0.29 K/mm3 (0.00-0.68); EOSINOPHILS PERCENT AUTO 3 % (0-6); Hematocrit 43.1 % (33.0-51.0); Hemoglobin 13.1 g/dL (11.5-16.0); IMMATURE GRAN ABSOLUTE AUTO 0.02 K/mm3 (0.00-0.10); IMMATURE GRAN PERCENT AUTO 0 % (0-1); LYMPHOCYTES ABSOLUTE AUTO 3.19 K/mm3 (0.84-5.20); LYMPHOCYTES PERCENT AUTO 28 % (21-46); MONOCYTES ABSOLUTE AUTO 0.52 K/mm3 (0.16-1.47); MONOCYTES PERCENT AUTO 5 % (4-13); Mean Corpuscular HGB 25.5 pg (26.0-34.0); Mean Corpuscular HGB Conc 30.4 g/dL (31.5-36.5); Mean Corpuscular Volume 84 fL (80-100); NEUTROPHILS ABSOLUTE AUTO 7.34 K/mm3 (1.96-9.15); NEUTROPHILS PERCENT AUTO 64 % (41-73); Platelet Count 517 K/mm3 (150-400); Red Blood Cell Count 5.13 M/mm3 (3.80-5.20); White Blood Cell Count 11.45 K/mm3 (4.00-11.30)
[2024-02-09 21:37] LABS: Albumin, Blood 3.7 g/dL (3.4-5.0); Bilirubin, Total 0.4 mg/dL (0.1-1.0); Bun/Creatinine Ratio 13.8 (12.0-20.0); Calcium, Blood 9.9 mg/dL (8.5-10.1); Creatinine, Blood 0.65 mg/dL (0.40-1.00); Globulin, Blood 3.8 g/dL (2.2-4.0); Potassium, Blood 4.3 mmol/L (3.5-5.5); Total Protein, Blood 7.5 g/dL (6.4-8.2)
== END | disposition home or self-care (01) ==
LOC: LAB 11:56 → LAB SHORT 11:56
PROVIDERS: Nurse Practitioner Family
DX: E78.5 Hyperlipidemia, unspecified (principal); D72.829 Elevated white blood cell count, unspecified
CPT/HCPCS: 80053; 85025

== ENCOUNTER 2024-03-21 07:34 | Emergency (ER) | payer MEDICARE ==
[~2024-03-21] VITALS: Ht 162.6 cm; Wt 73.9 kg
[2024-03-21 08:54] LABS: BASOPHILS ABSOLUTE AUTO 0.06 K/mm3 (0.00-0.23); BASOPHILS PERCENT AUTO 0 % (0-2); EOSINOPHILS ABSOLUTE AUTO 0.16 K/mm3 (0.00-0.68); EOSINOPHILS PERCENT AUTO 1 % (0-6); Hematocrit 36.9 % (33.0-51.0); Hemoglobin 11.9 g/dL (11.5-16.0); IMMATURE GRAN ABSOLUTE AUTO 0.05 K/mm3 (0.00-0.10); IMMATURE GRAN PERCENT AUTO 0 % (0-1); LYMPHOCYTES ABSOLUTE AUTO 2.22 K/mm3 (0.84-5.20); LYMPHOCYTES PERCENT AUTO 16 % (21-46); MONOCYTES PERCENT AUTO 4 % (4-13); Mean Corpuscular HGB 25.9 pg (26.0-34.0); Mean Corpuscular HGB Conc 32.2 g/dL (31.5-36.5); Mean Corpuscular Volume 80 fL (80-100); Mean Platelet Volume 8.5 fL (9.1-12.4); NEUTROPHILS ABSOLUTE AUTO 10.73 K/mm3 (1.96-9.15); NEUTROPHILS PERCENT AUTO 78 % (41-73); Platelet Count 510 K/mm3 (150-400); RDW Coefficient Variation 15.7 % (11.7-14.2); RDW Standard Deviation 46.3 fL (35.1-46.3); Red Blood Cell Count 4.59 M/mm3 (3.80-5.20); White Blood Cell Count 13.82 K/mm3 (4.00-11.30)
[2024-03-21 09:14] LABS: Albumin, Blood 3.1 g/dL (3.4-5.0); Albumin/Globulin Ratio 0.8 (0.8-1.8); Bilirubin, Total 0.2 mg/dL (0.1-1.0); Bun/Creatinine Ratio 16.5 (12.0-20.0); Calcium, Blood 9.7 mg/dL (8.5-10.1); Creatinine, Blood 0.67 mg/dL (0.40-1.00); Globulin, Blood 3.8 g/dL (2.2-4.0); Total Protein, Blood 6.9 g/dL (6.4-8.2)
[2024-03-21] MEDS ORDERED: SULTRIDS PO (10:21)
[2024-03-21 11:01] VITALS: BP 126/71
== END 2024-03-21 11:06 | disposition home or self-care (01) ==
LOC: ER 07:34
PROVIDERS: Emergency Medicine
DX: L02.216 Cutaneous abscess of umbilicus (principal); L03.316 Cellulitis of umbilicus; Z87.891 Personal history of nicotine dependence; Z79.899 Other long term (current) drug therapy
CPT/HCPCS: 74177; 80053; 85025; 99283-25; Q9967

== ENCOUNTER → 2024-04-03 | Outpatient (CLI) | payer MEDICARE ==
[~2024-04-03] MED LIST changes: +SULTRIDS PO
== END ==
LOC: LAB SHORT 18:51 → LAB 18:51
DX: L03.311 Cellulitis of abdominal wall (principal)
CPT/HCPCS: 87070; 87205